=== PATIENT | female | born 1950 | race Caucasian/White ===

== ENCOUNTER → 2018-02-28 14:00 | Inpatient (IN) | payer MEDICARE, OTHER ==
--- NOTE | 2018-02-22 13:52 | HP ---
AMENDED REPORT NOW INCLUDES DESIGNATED COSIGNER HISTORY AND PHYSICAL: DATE OF ADMISSION/SURGERY: 02/26/18 DATE OF OFFICE VISIT: 02/22/18 SURGEON: Mylene Mari MD * (DICTATED BY HÉCTOR DOMÍNGUEZ) PROCEDURE: Right total knee arthroplasty. CHIEF COMPLAINT: Right knee pain. HISTORY OF PRESENT ILLNESS: Ms. Villalobos is a 67-year-old female with end-stage osteoarthritis of the right knee. She has failed conservative treatment and elected to proceed with a right total knee arthroplasty. PAST MEDICAL HISTORY: 1. Hypertension. 2. Sleep apnea. 3. GERD. 4. High cholesterol. 5. Uterine cancer. PAST SURGICAL HISTORY: 1. Hysterectomy. 2. Bilateral carpal tunnel release. 3. Trigger finger release. 4. Appendectomy. CURRENT MEDICATIONS: 1. Vytorin 10/20 mg as directed. 2. Celebrex 20 mg. 3. Calcium and vitamin D. 4. Voltaren gel. 5. Hydrochlorothiazide 12.5 mg. 6. Tramadol as needed. ALLERGIES: To BETADINE and SHELLFISH. FAMILY HISTORY: Family history of coronary artery disease and breast cancer. SOCIAL HISTORY: She is a 67-year-old female. She lives with her son. She does not smoke or use drugs or alcohol. REVIEW OF SYSTEMS: A complete 14-point review of systems was reviewed with the patient, was all negative or noncontributory. She denies history of DVT, PE, hepatitis, HIV, or MRSA. She does report being very violent when she wakes up from anesthesia. PHYSICAL EXAMINATION GENERAL: She is well developed, well nourished, in no acute distress. VITAL SIGNS: She stands 5 feet 3 inches tall, weighs 278 pounds. Her blood pressure is 134/86, her heart rate is 96 . MUSCULOSKELETAL: Right lower extremity: The skin is intact. There are no open wounds or abrasions. She has a moderate joint effusion. She has some tenderness over the medial and lateral joint line. Range of motion is 10 to 120 degrees of flexion. She has 2+ dorsalis pedis pulse. Intact sensation in her lower extremity. Muscle group strengths are intact to 5/5. NEUROLOGIC: She is alert and oriented x3. Pleasant mood and appropriate affect. ASSESSMENT AND PLAN: Ms. Villalobos is a 67-year-old female with end-stage osteoarthritis of the right knee. She has failed conservative treatment and elected to proceed with a right total knee arthroplasty. The surgery is scheduled for 02/26/[address] Mari discussed the risks and benefits of the surgery at today's visit, and all of her questions were answered. She will follow up with Dr. Mari 2 weeks after the surgery. HÉCTOR DOMÍNGUEZ [id number]/[facility] #: [id number] [facility]
--- OUTSIDE RECORDS SUMMARY | 2018-02-26 09:50 | XMS REPORT | Continuity of Care Document ---
:1950 External Reference #:[id number] Author Name Avery William Care Team Providers Name Role Phone Katelynn Vera MD Primary Care Physician Unavailable Payers Type Date Identification Numbers Payment Provider Subscriber Effective: 2017 Policy Number: [id number] Medicare Sarah Billing PayID: [id number] [address] [place] [address] Effective: 2015 Policy Number: [id number] [facility] Ruben Billing Expires: 2017 Group Number: [id number] [address] PayID: [id number] [place] [address] Effective: 2017 Policy Number: [id number] [employer] Sarah Billing Group Number: [id number] [address] PayID: [id number] [place] [address] Expires: 2015 Policy Number: [id number] [employer] Ruben Billing Group Number: [id number] [address] PayID: [id number] [place] [address] Advance Directives Description No Information Available Problems Date Description Provider Status Onset: 10/22/2014 Obstructive sleep apnea syndrome Nadira Taylor MD Active Onset: 10/22/2014 Morbid obesity Nadira Taylor MD Active Onset: 11/17/2016 Localized, primary osteoarthritis Mylene Mari M.D. 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 needed for pain Vytorin Active Tablets 10-20mg As Unknown /0000 directed Celebrex Active Capsules 200mg As Unknown /0000 directed Calcium + D Active As Unknown /0000 directed Voltaren Active Gel 1% Unknown / Hydrochlorothiazide Active Capsules 12.5mg Unknown /0000 Medrol 11/17 Hx TBPK 4mg 1unit medrol M25.561 s dose pack Kamaljit, - - take as M.D. 07/08 directed Percocet 11/17 Hx Tablets 5-325mg 90tab 1-2 tabs M25.561 s by mouth Kamaljit, - q8 as M.D. 02/21 needed pain Simvastatin 10/21 Hx Tablets 20mg 1 by mouth - every day 09/06 Epipen 2-Gustavo 10/21 Hx Solution 0.3mg/0.3 use as Auto-Inje ML directed - ct 11/16 Gabapentin Hx Capsules 300mg Unknown /0000 - 11/16 Medications Administered in Office Medication Date Status Form Strength Qnty SIG Indications Ordering Provider Depomedrol Administered Injection Mylene 40MG 019 Carlos Mari Depomedrol Administered Injection Mylene 40MG 018 Carlos Mari Depomedrol Administered Injection Mylene 40MG 018 Carlos Mari Depomedrol Administered Injection Mylene 40MG 017 Carlos Mari Hyaluron Or Administered Injection Anna Derivative,Or 016 Carlos Bergeron thovisc,For Intra-Articul ar Inj Per Dose Hyaluron Or Administered Injection Anna Derivative,Or 016 Carlos Bergeron thovisc,For Intra-Articul ar Inj Per Dose Hyaluron Or Administered Injection Anna Derivative,Or 016 Carlos Bergeron thovisc,For Intra-Articul ar Inj Per Dose Depomedrol Administered Injection Anna 40MG Adilson Bergeron M.D. Hyaluron Or Administered Injection Anna Derivative,Or Juan Bergeron M.D. thovisc,For Intra-Articul ar Inj Per Dose Hyaluron Or Administered Injection Anna Derivative,Or Juan Bergeron M.D. thovisc,For Intra-Articul ar Inj Per Dose Hyaluron Or Administered Injection Anna Derivative,Or 015 Carlos Bergeron thovisc,For Intra-Articul ar Inj Per Dose Immunizations Description No Information Available Vital Signs Date Vital Result Comment 02/22/2018 9:53am Height 63 inches 5'3" Weight 278.00 lb Heart Rate 96 /min BP Systolic 134 mmHg BP Diastolic 86 mmHg BMI (Body Mass Index) 49.2 kg/m2 11/30/2017 11:20am Height 63 inches 5'3" Weight 270.00 lb dressed Heart Rate 88 /min BP Systolic Sitting 124 mmHg Lue large BP Diastolic Sitting 70 mmHg Lue large Respiratory Rate 16 /min BMI (Body Mass Index) 47.8 kg/m2 07/09/2017 9:51am Height 63 inches 5'3" Weight 269.00 lb Heart Rate 80 /min BP Systolic 140 mmHg BP Diastolic 94 mmHg Body Temperature 97.4 F Pain Level 8 BMI (Body Mass Index) 47.6 kg/m2 11/17/2016 10:43am Height 63 inches 5'3" Weight 269.00 lb BP Systolic 130 mmHg BP Diastolic 84 mmHg Respiratory Rate 20 /min Body Temperature 97.9 F Pain Level 7 BMI (Body Mass Index) 47.6 kg/m2 12/13/2015 8:25am Height 63 inches 5'3" Weight 255.00 lb Heart Rate 110 /min BP Systolic 150 mmHg BP Diastolic 100 mmHg BMI (Body Mass Index) 45.2 kg/m2 12/06/2015 8:08am Height 63 inches 5'3" Weight 260.00 lb Pain Level 0 BMI (Body Mass Index) 46.1 kg/m2 11/24/2015 8:59am Height 63 inches 5'3" Weight 255.00 lb Pain Level 3 BMI (Body Mass Index) 45.2 kg/m2 09/08/2015 2:41pm Height 63 inches 5'3" Weight 255.00 lb Heart Rate 64 /min Respiratory Rate 18 /min Pain Level 3 BMI (Body Mass Index) 45.2 kg/m2 03/30/2015 11:34am Height 63 inches 5'3" Weight 160.00 lb Heart Rate 102 /min BP Systolic Sitting 146 mmHg BP Diastolic Sitting 90 mmHg Respiratory Rate 20 /min O2 % BldC Oximetry 98 % BMI (Body Mass Index) 28.3 kg/m2 02/09/2015 9:29am Height 62.5 inches 5'2.50" Weight 278.00 lb reported Heart Rate 98 /min BP Systolic 140 mmHg BP Diastolic 92 mmHg Respiratory Rate 14 /min O2 % BldC Oximetry 98 % BMI (Body Mass Index) 50.0 kg/m2 10/22/2014 9:22am Height 62.5 inches 5'2.50" Weight 278.00 lb Heart Rate 108 /min BP Systolic 140 mmHg BP Diastolic 90 mmHg Respiratory Rate 14 /min Body Temperature 98.6 F O2 % BldC Oximetry 96 % BMI (Body Mass Index) 50.0 kg/m2 Neck Circumference in inches 18 05/21/2014 9:09am Height 62.5 inches 5'2.50" Body Temperature 97.6 F Pain Level 0 05/14/2014 9:22am Height 62.5 inches 5'2.50" Weight 240.00 lb Heart Rate 94 /min BP Systolic Sitting 134 mmHg BP Diastolic Sitting 97 mmHg Pain Level 0 BMI (Body Mass Index) 43.2 kg/m2 05/07/2014 9:39am Height 63 inches 5'3" Heart Rate 101 /min BP Systolic 140 mmHg BP Diastolic 114 mmHg 03/19/2014 10:34am Height 63 inches 5'3" Weight 260.00 lb Heart Rate 99 /min BP Systolic 157 mmHg BP Diastolic 90 mmHg BMI (Body Mass Index) 46.1 kg/m2 Results Description No Information Available Procedures Date Code Description Status 02/22/201820474 Inject/Drain Joint/Bursa Major W/O US Completed 07/09/2017 Inject/Drain Joint/Bursa Major W/O US Completed 11/17/2016 Inject/Drain Joint/Bursa Major W/O US Completed 12/13/2015 Inject/Drain Joint/Bursa Major W/O US Completed 12/06/2015 Inject/Drain Joint/Bursa Major W/O US Completed 11/24/2015 Inject/Drain Joint/Bursa Major W/O US Completed 09/08/201564140 Inject Tendon Sheath Or Ligament Aponeurosis Eg Plantar Completed Fascia 01/20/2015 92195 Polysomnography Sleep Staging 4+ Parameters W/Cpap Completed 05/21/2014 Inject/Drain Joint/Bursa Major W/O US Completed 05/14/2014 Inject/Drain Joint/Bursa Major W/O US Completed 05/07/2014 Inject/Drain Joint/Bursa Major W/O US Completed 03/19/2014 48825 Rad Exam; Knee Comp Completed 03/19/2014 96006 Rad Exam; Elbow, Limited Completed Encounters Type Date Location Provider Dx Diagnosis Office Visit 11/30/2017 [facility] And Shabnam Gibson, G47.33 Obstructive sleep 10:45a [facility] LONNIE MUKHERJEE, GAS FLOW REGULATOR-BC apnea (adult) [facility] (pediatric) Z68.42 Body mass index (BMI) 45.0-49.9, adult Office Visit 11/17/2016 9:45a [facility] Mylene Mari, M25.561 Pain in right Of [facility]. M.D. knee M17.11 Unilateral primary osteoarthritis, right knee M25.461 Effusion, right knee M54.31 Sciatica, right side M54.5 Low back pain Office Visit 09/08/2015 Orthopedic Anna M17.11 Unilateral primary 2:20p [facility] Carlos Bergeron osteoarthritis, C.M.A. right knee M65.321 Trigger finger, right index finger Office Visit 03/30/2015 Pulmonology And Shabnam G47.33 Obstructive sleep 11:15a [facility] YAZ Gibson, LONNIE, apnea (adult) [facility] GAS FLOW REGULATOR-BC (pediatric) E66.01 Morbid (severe) obesity due to excess calories Office Visit 02/09/2015 Pulmonology And Shabnam G47.33 Obstructive sleep 9:30a [facility] YAZ Gibson, RN, apnea (adult) [facility] GAS FLOW REGULATOR-BC (pediatric) E66.01 Morbid (severe) obesity due to excess calories Office Visit 10/22/2014 9:30a Pulmonology And Nadira 327.23 Obstructive Sleep [facility] MD Claudia Apnea Adult & [facility] Pediatric 278.01 Obesity Morbid Office Visit 03/19/2014 10:15a Orthopedic Anna Bergeron, 813.05 [facility] 715.16 Osteoarthrosis Localized Prim Lower Leg Plan of Treatment Future Appointment(s):03/11/2018 1:15 pm - Mylene Mari M.D. at [facility].02/26/2018 9:30 am - WILBER Barrientos at [facility]02/26/2018 9:30 am - HÉCTOR Cazares at [facility]02/26/2018 9:30 am - Mylene Mari M.D. at [facility]12/03/2018 10:30 am - Shabnam Gibson DNP, RN, GAS FLOW REGULATOR-BC at [facility]02/22/2018 - Mylene Mari M.D.M17.0 Bilateral primary osteoarthritis of kneeFollow up:Follow up: 2 weeks after [id number] Effusion, right kneeM25.561 Pain in right kneeM25.562 Pain in left kneeFollow up:Follow up:M25.462 Effusion, left knee
--- OUTSIDE RECORDS SUMMARY | 2018-02-26 09:51 | XMS REPORT ---
:1950 External Reference #:[id number] Author Organization [facility] Address [address] [place] [address] Phone [phone] Care Team Providers Name Role Phone Katelynn Vera M.D. Care Team Information Mail Superintendent Unavailable Katelynn Vera M.D. Primary Care Physician Unavailable Payers Type Date Identification Numbers Payment Provider Subscriber Medicare Primary Effective: Policy Number: Medicare Dane Smith Billing 2017 [id number] PayID: [id number] [address] [place] [address] Medigap Part B Effective: 2017 Policy Number: Jobteladio Smith Billing [id number] Group Number: [id number] [address] PayID: [id number] [place] [address] Medigap Part B Effective: Policy Number: Medicare Dane Smith Billing 2017 [id number] Expires: 2017 PayID: [id number] [address] [place] [address] Problems Date Description Provider Status Onset: 08/31/2008 Vitamin D deficiency Lindsay Delgado M.D. Active Onset: 06/15/2011 Hyperlipidemia Jessie Ramirez M.D. Active Onset: 06/15/2011 Cobalamin deficiency Jessie Ramirez M.D. Active Onset: 06/15/2011 Morbid obesity Jessie Ramirez M.D. Active Onset: 06/15/2011 Gastroesophageal reflux disease Jessie Ramirez M.D. Active Onset: 09/24/2013 Degenerative joint disease Juan Miguel Cherry M.D. Active involving multiple joints Onset: 10/01/2014 Obstructive sleep apnea syndrome Juan Miguel Cherry M.D. Active Onset: 08/13/2017 Essential hypertension Katelynn Vera M.D. Active Onset: 06/15/2011 Adult health examination Jessie Ramirez M.D. 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 areas after bathing Hydrochlorothiazid 01/20 Active Capsules 12.5mg 30cap 1 by mouth I10 Julio C s every day Carlos Diaz Voltaren 04/15 Active Gel 1% 100gm apply to Dacia painful Brian, area three [employer] TRANSMISSION [employer]IST times a day Celecoxib 10/03 Active Capsules 200mg 180ca take 1 M15.0 Eulalio A ps capsule Darlow, twice M.D. daily Simvastatin 09/24 Active Tablets 20mg 90tab take 1 E78.5 s tablet by Morral, mouth M.D. every day Epipen 2-Gustavo 11/14 Active Solution 0.3mg/0.3 1unit use as Auto-Inje ML s directed juliana Vera M.D. Caltrate 600+D Active Tablets 600-400mg 100ta 1 po bid Unknown Plus /0000 -Unit bs Cpap Active as Unknown /0000 directed Tramadol HCL Active Tablets 50mg 1 by mouth Unknown / every 6 hours as needed Guaifenesin-Codein 07/30 Hx Syrup 100-10mg/ 120ml 5-10ml by R05 Ro 5ML mouth at [facility], - hs prn Afnp-C 08/13 cough 3-4 hrs x 1 Ciprofloxacin HCL 08/03 Hx Solution 0.3% 5ml 2 drop to H10.31 Eulalio A. affected Vimal, - eye(s) two M.D. 08/10 times day x 7 days. Doxycycline 04/15 Hx Tablets 100mg 28tab 1 by mouth [facility] s twice a Brian, - day x 14d [employer]SMISSION [employer]IST 10/14 Cheratussin ac 04/15 Hx Syrup 100-10mg/ 120ml 1-2 5ML teaspoon Brian, - every 4 [employer] TRANSM[employer]ION [employer]IST 10/14 hours needed Mupirocin 03/03 Hx Ointment 2% 1tube apply to L01.00 affected Morral, - area three M.D. 10/14 day x 7days Prednisone 03/03 Hx Tablets 20mg 21tab 3 tabs x 4 M54. s days, 2 Morral, - tab x 3 M.D. 04/15 days, tab x 3 days then stop Gabapentin 03/03 Hx Capsules 300mg 30cap 1 tab by M54.31 s mouth Morral, - every M.D. 10/14 Physical Therapy 03/03 Hx evaluation M54.31 and Morral, - treatment M.D. 10/14 of leg pain/sciat ica Cyclobenzaprine 10/01 Hx Tablets 10mg 30tab 1 by mouth 724.3 Juan Miguel Cherry, s every M.D. - night 03/03 Prednisone 10/01 Hx Tablets 20mg 10tab 1 by mouth 724.3 Juan Miguel Cherry, /2014 s twice a M.D. - day for 5 Amoxicillin/Clavul 04/20 Hx Tablets 875-125mg 20tab 1 by mouth 465.9 Keisha anate Potassium /2014 s twice a Daron, PREFLIGHT MECHANIC - day x 10 Cheratussin ac 04/20 Hx Syrup 100-10mg/ 118ml 2 teaspoon J06.9 5ML every 4 Daron, PREFLIGHT MECHANIC - hours as 03/03 Azithromycin 01/24 Hx Tablets 500mg 5tabs 1 po qd x 786.2 5 Timothy, - Afnp-C 01/29 Benzonatate 01/24 Hx Capsules 200mg 30cap 1 po tid 786.2 s prn for Timothy, - cough Afnp-C 01/30 Guaifenesin ac 01/24 Hx Syrup 100-10mg/ 4oz 1-2 tsp q 786.2 5ML 4 hrs prn Timothy, - for cough Afnp-C 01/31 Aquatherapy 07/09 Hx Please Dagoberto Pena Referral /2012 evaluate Emma, - and treat M.D. 09/24 for b/l knee arthritis and Morbid Obesity Augmentin 04/29 Hx Tablets 875mg 20tab 1 po bid x 461.0 s 10 days Daron PREFLIGHT MECHANIC - 04/29 Amoxicillin/Clavul 04/29 Hx Tablets 875mg 20tab 1 po bid x 461.0 Keisha anate Potassium /2012 s 10 days Daron PREFLIGHT MECHANIC - 05/09 Zithromax 02/20 Hx Tablets 250mg 1tabs 2 po qd 465.9 Ni today , Letty, - then 1 po [employer]SM[employer]IST 03/02 qd times Tussionex 02/20 Hx Liquid ER 10Oz 5 ml po 786.2 bid prn Letty, - cough [employer]SMISSION SPECIALIST 04/29 Ergocalciferol 06/25 Hx Capsules [id number] 8caps 1 capsule Jessie Hammond /2011 po every James, - week for 8 M.D. Aquatherapy 06/14 Hx Please Jessie Hammond Referral /2011 evaluate James, - and treat M.D. 04/29 for b/l /2013 knee arthritis and Morbid Obesity Diflucan 05/12 Hx Tablets 150mg 1tabs 1 po qd von - James, 06/14 M.D. Augmentin 04/21 Hx Tablets 875-125mg 28tab 1 po bid 461.9 s with food Brian, - x 14d [employer]SM[employer]IST 05/12 BD 01/04 Hx 3ml 12uni use ts monthly von - for b James, 03/31 injections M.D. Cyanocobalamin 01/04 Hx Soln 1000mcg/M 30ml inject 1 Jessie Hammond L cc Feliciano Ramirez M.D. 09/24 usly once A month Zithromax 06/12 Hx Tablets 250mg 1tabs 2 po qd 465.9 Lindsay M. Danny mendez, - then 1 po M.D. 06/21 qd times Celebrex 05/06 Hx Caps 200mg 180ca take 1 5.09 Juan Miguel Cherry, ps capsule by Carlos - mouth 10/03 twice a day Nexium 05/06 Hx Capsules 40mg 30cap take 1 Jessie Hammond s capsule by James, - mouth once M.D. 04/29 Amoxil 03/03 Hx Capsules 500mg 30cap 1 po tid 465.9 Ro s Jose, - Afnp-C 03/13 Zithromax 09/15 Hx Tablets 250mg 6Tabs 2 po qd 916.5 Dacia today , Brian, - then 1 po [employer]SMISSION [employer]IST 09/19 qd times Triamcinolone 09/15 Hx Cream 0.5% 30gm apply thin 916.5 Dacia Acetonide film tid Brian, - to AUT[employer] TRANSMISSION SPECIALIST 03/31 areas Note 02/28 Hx PT May Participat von - e In Low James, 09/15 Impact M.D. Physical Activities Cyanocobalamin 04/05 Hx 1000mcg/M 1Vial 1 cc SQ Q L Month les Ramirez, 03/31 M.D. Syringes 04/05 Hx 1Box 3cc 25 Jessie D. gauge 1 James, - inch M.D. 04/02 use monthly for b12 injections Vytorin 04/05 Hx Tablets 10-20mg 90tab Take 1 [place] A. s Tablet By Emma, - Mouth Once M.D. 09/24 A Day /2013 Nystatin 12/22 Hx Cream [id number] 90gra apply bid [place] . t/GM m to Carter, - affected M.D. 10/14 after bathing Aqua Therapy 12/22 Hx Treatment Ni /2006 And les Ramirez, 09/15 For Knee M.D. Pain And Arthritis Medrol Dose Gustavo 05/02 Hx Tablets 4mg 1Pack Use as Directed Feliciano Otto [employer]O TRANSMISSION SPECIALIST-C 06/02 Tobramycin 05/02 Hx 5cc 2 GTT In Fanny R Ophthalmic The Geremias Otto - Jerod AUTO TRANSMISSION SPECIALIST-C 06/02 Eye tid For 5-7 Days Doxycycline 05/02 Hx Capsules 100mg 20cap 1 PO bid Fanny R s Ten Days Feliciano Otto AUTO TRANSMISSION SPECIALIST-C 06/02 Keflex 03/30 Hx Capsules 500mg 20cap 1 po bid X s 10 Days Feliciano Aguirre Afnp-C 04/09 Z-Max 03/17 Hx 2gm 1unit Single s Dose X 1 Feliciano Aguirre Afnp-C 03/19 Zithromax Z-Gustavo 12/24 Hx Tablets 250mg 1Pack as Fanny R Directed Feliciano Otto [employer]O TRANSMISSION SPECIALIST-C 03/17 Augmentin 11/07 Hx Tablets 875mg 20tab 1 po bid Eulalio A. s with food Feliciano Celis M.D. 12/20 Pen VK 08/09 Hx Tablets 500mg 40tab 1 PO qid Eulalio A. /2004 s Feliciano Celis M.D. 08/19 Avelox 02/07 Hx 400mg 10uni 1 qd Eulalio A. ts Feliciano Celis M.D. 02/17 Tussi-12 02/07 Hx Liquid 100cc 1 TSP Q12H Eulalio A. prn Cough Feliciano Celis M.D. 02/17 Zithromax 12/09 Hx 250mg 6unit 2 tabs day 461.0 Rudy F. s 1 Feliciano Lora M.D. 02/28 tab qd days 2 thru 5 Robitussin ac 12/09 Hx 4Oz 1-2 TSP PO Q4H prn Timothy, - Cough Afnp-C 12/16 Flexeril 08/25 Hx 10mg 30uni 1tidprn ts Brian, - AUT[employer] TRANSMISSION SPECIALIST 12/09 Vicodin 08/25 Hx 5/500 20uni 1po q4h ts prn Brian, - AUTO TRANSMISSION SPECIALIST 12/09 Amoxicillin 03/02 Hx Tablets 500mg 21tab 1 Tablet 3 s Times [facility], - Daily Afnp-C 03/09 Nystatin Cream 03/02 Hx Cream 30gm Apply bid To [facility], - Affected Afnp-C 03/09 Amoxicillin 02/22 Hx 250mg 30uni 1 PO tid Rosalio Olivares Feliciano Stringer M.D. 03/02 Multivitamins Hx Tablets 100ta 1 po qd Unknown /0000 bs - 08/03 Medications Administered in Office Medication Date Status Form Strength Qnty SIG Indications Ordering Provider B-12 Injection 10/27/ Administered Injection Ni 2010 les Ramirez M.D. Injection 10/27/ Administered Injection Ni Subcutaneous Or 2010 Mike Perez M.D.-12 Injection 09/09/ Administered Injection Ni 2010 les Ramirez M.D. Injection 09/09/ Administered Injection Ni Subcutaneous Or 2010 Mike Perez M.D. B-12 Injection 05/07/ Administered Injection Ni 2006 les Ramirez M.D. Injection 05/07/ Administered Injection Ni Subcutaneous Or 2006 Mike Perez M.D.-12 Injection 04/05/ Administered Injection Ni 2006 les Ramirez M.D. Injection 04/05/ Administered Injection Ni Subcutaneous Or 2006 les Ramirez, Intramuscular M.D. B-12 Injection 03/08/ Administered Injection Ni 2006 les Ramirez M.D. Injection 03/08/ Administered Injection Ni Subcutaneous Or 2006 les Ramirez, Intramuscular M.D. B-12 Injection 01/19/ Administered Injection Ni 2005 les Ramirez M.D. Injection 01/19/ Administered Injection Ni Subcutaneous Or 2005 les Ramirez, Intramuscular M.D. B-12 Injection 12/22/ Administered Injection Ni 2005 les Ramirez M.D. Injection 12/22/ Administered Injection Ni Subcutaneous Or 2005 les Ramirez, Intramuscular M.D. B-12 Injection 11/14/ Administered Injection Ni 2005 les Ramirez M.D. Injection 11/14/ Administered Injection Ni Subcutaneous Or 2005 les Ramirez, Intramuscular M.D. B-12 Injection 10/20/ Administered Injection Ni 2005 Maryjo Perez.D. Injection 10/20/ Administered Injection Ni Subcutaneous Or 2005 les Ramirez, Intramuscular M.D. B-12 Injection 09/19/ Administered Injection Ni 2005 les Ramirez M.D. Injection 09/19/ Administered Injection Ni Subcutaneous Or 2005 les Ramirez, Intramuscular M.D. B-12 Injection 08/24/ Administered Injection Ni 2005 les Ramirez M.D. Injection 08/24/ Administered Injection Ni Subcutaneous Or 2005 les Ramirez Intramuscular M.D. B-12 Injection 07/18/ Administered Injection Ni 2005 les Ramirez M.D. Injection 07/18/ Administered Injection Ni Subcutaneous Or 2005 les Ramirez Intramuscular M.D. B-12 Injection 06/02/ Administered Injection Ni 2005 les Ramirez M.D. Injection 06/02/ Administered Injection Ni Subcutaneous Or 2005 les Ramirez, Intramuscular M.D. B-12 Injection 05/02/ Administered Injection Fanny R 2005 Fam, AUTO TRANSMISSION SPECIALIST-C Injection 05/02/ Administered Injection Fanny R Subcutaneous Or 2005 Fam, Intramuscular AUTO TRANSMISSION SPECIALIST-C B-12 Injection 03/30/ Administered Injection Alana 2005 Timothy, Afnp-C Injection 03/30/ Administered Injection Alana Subcutaneous Or 2005 Timothy, Intramuscular Afnp-C B-12 Injection 03/02/ Administered Injection Ni 2006 els Ramirez M.D. Injection 03/02/ Administered Injection Ni Subcutaneous Or 2005 Mike Perez.DBrinda B-12 Injection 12/20/ Administered Injection Ni 2004 les Ramirez M.D. B-12 Injection 12/20/ Administered Injection Eulalio A. 2004 Carlos Celis Injection 12/20/ Administered Injection Ni Subcutaneous Or 2004 Mike Perez M.DBrinda B-12 Injection 11/14/ Administered Injection Ni 2004 les Ramirez M.D. Injection 11/14/ Administered Injection Ni Subcutaneous Or 2004 Mike Perez M.D. Immunizations CPT Code Status Date Vaccine Lot # [id number] Given 10/15/2017 High-Dose, Influenza Virus Vacccine-fluzone 65 and older 52429 Given 08/13/2017 Pneumococcal Conjugate Vacc-13 [id number] 05348 Given 01/23/2014 DO Not Use Split Influenza Virus Vaccine [id number] 14321 Given 07/09/2012 Zostivax [id number] 52468 Given 08/12/2008 Tdap Tetanus, W Pertussis [id number] 81933 Given 12/17/2007 DO Not Use Split Influenza Virus Vaccine [id number] 96152 Given 12/25/2006 DO Not Use Split Influenza Virus Vaccine 93063 Given 12/22/2005 DO Not Use Split Influenza Virus Vaccine [id number] 17803 Given 03/02/2005 DO Not Use Split Influenza Virus Vaccine [id number] Vital Signs Date Vital Result Comment 01/31/2018 BP Systolic 128 mmHg BP Diastolic 86 mmHg Heart Rate 80 /min Body Temperature 97.9 F Respiratory Rate 16 /min Weight 271.00 lb 10/01/2017 BP Systolic 120 mmHg BP Diastolic 78 mmHg Heart Rate 82 /min Body Temperature 97.8 F Respiratory Rate 18 /min Weight 264.00 lb 08/13/2017 BP Systolic 132 mmHg BP Diastolic 92 mmHg Heart Rate 88 /min Body Temperature 97.9 F Height 61 inches 5'1" Weight 264.00 lb BMI (Body Mass Index) 49.9 kg/m2 07/30/2017 BP Systolic 120 mmHg BP Diastolic 78 mmHg Heart Rate 96 /min Body Temperature 98.3 F Respiratory Rate 18 /min Height 60.25 inches 5'0.25" Weight 260.00 lb BMI (Body Mass Index) 50.4 kg/m2 08/03/2016 BP Systolic 122 mmHg BP Diastolic 80 mmHg Heart Rate 104 /min Body Temperature 98.1 F Respiratory Rate 18 /min Height 60.25 inches 5'0.25" Weight 273.38 lb BMI (Body Mass Index) 52.9 kg/m2 Right Visual Acuity Distance 20/50 w/kit Left Visual Acuity Distance 20/25 w/kit 01/21/2016 BP Systolic 150 mmHg BP Diastolic 90 mmHg Heart Rate 80 /min Body Temperature 97.9 F Height 60.25 inches 5'0.25" Weight 273.00 lb BMI (Body Mass Index) 52.9 kg/m2 10/15/2015 BP Systolic 144 mmHg BP Diastolic 88 mmHg Heart Rate 100 /min Body Temperature 97.1 F Height 60.25 inches 5'0.25" Weight 269.00 lb BMI (Body Mass Index) 52.1 kg/m2 04/15/2015 BP Systolic 136 mmHg BP Diastolic 80 mmHg Heart Rate 76 /min Body Temperature 98.5 F Respiratory Rate 20 /min Height 60.25 inches 5'0.25" Weight 270.00 lb BMI (Body Mass Index) 52.3 kg/m2 03/03/2015 BP Systolic 156 mmHg BP Diastolic 88 mmHg Heart Rate 90 /min Body Temperature 98.1 F Respiratory Rate 16 /min Height 60.25 inches 5'0.25" Weight 270.50 lb BMI (Body Mass Index) 52.4 kg/m2 10/01/2014 BP Systolic 140 mmHg BP Diastolic 102 mmHg Heart Rate 68 /min Body Temperature 98.2 F Respiratory Rate 18 /min Height 60.25 inches 5'0.25" Weight 275.00 lb BMI (Body Mass Index) 53.3 kg/m2 04/20/2014 BP Systolic 146 mmHg BP Diastolic 90 mmHg Heart Rate 110 /min Body Temperature 98.5 F Respiratory Rate 20 /min O2 % BldC Oximetry 98 % Height 60.25 inches 5'0.25" Weight 272.00 lb BMI (Body Mass Index) 52.7 kg/m2 04/02/2014 BP Systolic 136 mmHg BP Diastolic 90 mmHg Heart Rate 80 /min Body Temperature 97.6 F Height 60.25 inches 5'0.25" Weight 269.00 lb BMI (Body Mass Index) 52.1 kg/m2 09/24/2013 BP Systolic 124 mmHg BP Diastolic 80 mmHg Heart Rate 82 /min Body Temperature 98.2 F Respiratory Rate 20 /min Height 60.25 inches 5'0.25" Weight 272.00 lb BMI (Body Mass Index) 52.7 kg/m2 01/24/2013 BP Systolic 132 mmHg BP Diastolic 86 mmHg Heart Rate 104 /min Body Temperature 98.4 F Respiratory Rate 18 /min O2 % BldC Oximetry 98 % Height 61.5 inches 5'1.50" Weight 269.00 lb BMI (Body Mass Index) 50.0 kg/m2 07/09/2012 BP Systolic 150 mmHg BP Diastolic 100 mmHg Heart Rate 76 /min Body Temperature 97.8 F Respiratory Rate 18 /min Height 61.5 inches 5'1.50" Weight 265.00 lb BMI (Body Mass Index) 49.3 kg/m2 04/29/2012 BP Systolic 122 mmHg BP Diastolic 80 mmHg Heart Rate 90 /min Body Temperature 98.4 F Respiratory Rate 20 /min Height 61.5 inches 5'1.50" Weight 263.38 lb BMI (Body Mass Index) 49.0 kg/m2 02/21/2012 BP Systolic 120 mmHg BP Diastolic 80 mmHg Heart Rate 84 /min Body Temperature 98.2 F Height 61.5 inches 5'1.50" Weight 274.00 lb BMI (Body Mass Index) 50.9 kg/m2 06/15/2011 BP Systolic 122 mmHg BP Diastolic 88 mmHg Heart Rate 104 /min Height 61.5 inches 5'1.50" Weight 274.00 lb BMI (Body Mass Index) 50.9 kg/m2 05/12/2010 BP Systolic 128 mmHg BP Diastolic 80 mmHg Heart Rate 80 /min Body Temperature 98.3 F Height 61.5 inches 5'1.50" Weight 269.00 lb BMI (Body Mass Index) 50.0 kg/m2 04/21/2010 BP Systolic 110 mmHg BP Diastolic 70 mmHg Heart Rate 80 /min Body Temperature 98.6 F Height 61.5 inches 5'1.50" Weight 269.00 lb BMI (Body Mass Index) 50.0 kg/m2 03/31/2010 BP Systolic 120 mmHg BP Diastolic 82 mmHg Heart Rate 100 /min Height 61.5 inches 5'1.50" Weight 275.00 lb BMI (Body Mass Index) 51.1 kg/m2 08/12/2008 BP Systolic 126 mmHg BP Diastolic 88 mmHg Heart Rate 76 /min Respiratory Rate 18 /min Height 61.5 inches 5'1.50" Weight 259.00 lb BMI (Body Mass Index) 48.1 kg/m2 06/12/2008 BP Systolic 124 mmHg BP Diastolic 88 mmHg Heart Rate 80 /min Body Temperature 98.7 F Height 61.5 inches 5'1.50" Weight 253.00 lb BMI (Body Mass Index) 47.0 kg/m2 03/03/2008 BP Systolic 130 mmHg BP Diastolic 90 mmHg Heart Rate 96 /min Body Temperature 98.5 F Height 61.5 inches 5'1.50" Weight 262.00 lb BMI (Body Mass Index) 48.7 kg/m2 09/20/2007 BP Systolic 142 mmHg BP Diastolic 84 mmHg Body Temperature 76.0 F Height 61.5 inches 5'1.50" Weight 262.00 lb BMI (Body Mass Index) 48.7 kg/m2 09/16/2007 BP Systolic 120 mmHg BP Diastolic 80 mmHg Heart Rate 80 /min Body Temperature 98.3 F Height 61.5 inches 5'1.50" Weight 262.00 lb BMI (Body Mass Index) 48.7 kg/m2 02/28/2007 BP Systolic 118 mmHg BP Diastolic 82 mmHg Heart Rate 88 /min Body Temperature 97.6 F Height 61.5 inches 5'1.50" Weight 262.00 lb BMI (Body Mass Index) 48.7 kg/m2 10/08/2006 BP Systolic 114 mmHg BP Diastolic 80 mmHg Body Temperature 98.3 F Respiratory Rate 16 /min Height 61.5 inches 5'1.50" 06/28/2006 BP Systolic 122 mmHg BP Diastolic 80 mmHg Heart Rate 76 /min Height 61.5 inches 5'1.50" Weight 260.00 lb BMI (Body Mass Index) 48.3 kg/m2 05/28/2006 BP Systolic 124 mmHg BP Diastolic 70 mmHg Heart Rate 72 /min Body Temperature 97.4 F Height 61.5 inches 5'1.50" Weight 259.00 lb BMI (Body Mass Index) 48.1 kg/m2 04/05/2006 BP Systolic 122 mmHg BP Diastolic 80 mmHg Heart Rate 86 /min Body Temperature 98.0 F Respiratory Rate 13 /min Height 61.5 inches 5'1.50" 12/22/2005 BP Systolic 120 mmHg BP Diastolic 80 mmHg Heart Rate 88 /min Height 61.5 inches 5'1.50" Weight 252.00 lb BMI (Body Mass Index) 46.8 kg/m2 05/09/2005 BP Systolic 124 mmHg BP Diastolic 80 mmHg Heart Rate 74 /min Respiratory Rate 13 /min Height 62.25 inches 5'2.25" 05/02/2005 BP Systolic 124 mmHg BP Diastolic 80 mmHg Heart Rate 78 /min Respiratory Rate 15 /min Height 62.25 inches 5'2.25" 03/30/2005 BP Systolic 128 mmHg BP Diastolic 74 mmHg Heart Rate 72 /min Body Temperature 98.4 F Height 62.25 inches 5'2.25" Weight 250.00 lb BMI (Body Mass Index) 45.4 kg/m2 03/17/2005 BP Systolic 120 mmHg BP Diastolic 78 mmHg Heart Rate 80 /min Body Temperature 100.0 F Height 62.25 inches 5'2.25" 12/24/2004 BP Systolic 124 mmHg BP Diastolic 74 mmHg Heart Rate 78 /min Body Temperature 98.4 F Height 62.25 inches 5'2.25" Weight 246.00 lb BMI (Body Mass Index) 44.6 kg/m2 11/14/2004 BP Systolic 134 mmHg BP Diastolic 76 mmHg Heart Rate 76 /min Body Temperature 98.0 F Height 62.25 inches 5'2.25" Weight 233.00 lb BMI (Body Mass Index) 42.3 kg/m2 11/07/2004 BP Systolic 108 mmHg BP Diastolic 70 mmHg Heart Rate 76 /min Body Temperature 98.3 F Height 62.25 inches 5'2.25" Weight 243.00 lb BMI (Body Mass Index) 44.1 kg/m2 08/09/2004 BP Systolic 124 mmHg BP Diastolic 80 mmHg Heart Rate 68 /min Body Temperature 98.3 F Respiratory Rate 16 /min Height 62.25 inches 5'2.25" Weight 243.00 lb BMI (Body Mass Index) 44.1 kg/m2 08/05/2004 BP Systolic 132 mmHg BP Diastolic 80 mmHg Heart Rate 78 /min Height 62.25 inches 5'2.25" Weight 243.00 lb BMI (Body Mass Index) 44.1 kg/m2 05/17/2004 BP Systolic 128 mmHg BP Diastolic 88 mmHg Heart Rate 92 /min Weight 244.00 lb 04/05/2004 BP Systolic 128 mmHg LG Cuff BP Diastolic 80 mmHg LG Cuff Heart Rate 84 /min Weight 250.00 lb 02/08/2004 BP Systolic 131 mmHg BP Diastolic 82 mmHg Heart Rate 72 /min Body Temperature 97.2 F Respiratory Rate 18 /min O2 % BldC Oximetry 96 % 12/10/2003 BP Systolic 130 mmHg BP Diastolic 80 mmHg Heart Rate 88 /min Body Temperature 98.0 F Weight 247.00 lb 08/25/2002 BP Systolic 136 mmHg BP Diastolic 74 mmHg Heart Rate 68 /min Weight 241.00 lb 03/02/1998 Body Temperature 96.5 F 02/22/1998 Body Temperature 97.6 F Weight 237.00 lb Results Test Date Test Result H/L Range Note Laboratory test 11/12/2017 Misc Lab Test See Attached finding Laboratory test 10/17/2017 Surgical Pathology SEE RESULT BELOW 1 finding Laboratory test 08/13/2017 Cytology Thinprep SEE RESULT BELOW 2 finding w/rfx(cmc) Lipid Profile 07/24/2017 Cholesterol 172 mg/dL 120-200 Triglycerides 129 mg/dL 30-200 HDL Cholesterol 71 mg/dL 30-85 LDL (Calculated) 75 CALC 0-129 VLDL Cholesterol 26 mg/dL 0-50 HDL Risk Factor 2.4 CALC 0.0-4.4 Laboratory test finding 07/24/2017 TSH 0.98 mIU/L 0.50-6.00 CBC Electronic Fma 07/24/2017 WBC 12.5 x10^3/UL High 4.0-10.0 3 RBC 5.15 x10^6/UL 3.93-6.00 HGB 15.1 g/dL 12.0-17.0 HCT 44 % 35-50 MCV 85.8 fL 80.0-95.0 MCH 29.3 pg 25.6-32.2 MCHC 34.2 g/dL 32.2-36.0 RDW-CV 14.0 % 11.6-14.4 PLT 240 x10^3/UL 163-400 MPV 10.6 fL 9.4-12.4 Azalia# 9.60 x10^3/UL High 1.56-6.13 Lymph# 2.06 x10^3/UL 1.18-3.74 Camas# 0.66 x10^3/UL 0.24-0.82 Eos # 0.1 x10^3/UL 0.0-0.5 Baso # 0.05 x10^3/UL 0.01-0.08 Azalia% 76.7 % High 34.0-70.0 Lymph % 16.5 % Low 20.0-52.0 Camas% 5.3 % 5.0-12.0 Eos% 0.9 % 0.7-7.0 Baso% 0.4 % 0.1-1.2 Comprehensive Metabolic Prof 07/24/2017 Sodium 140 mEq/L 134-149 Potassium 4.2 mEq/L 3.6-5.5 Chloride 103 mEq/L 94-112 Carbon Dioxide 27 mEq/L 21-32 Glucose 101 mg/dL 70-105 BUN 23 mg/dL 6-26 Creatinine 0.7 mg/dL 0.6-1.4 BUN/Creat Ratio 32.9 CALC 8.0-36.0 Calcium 9.4 mg/dL 8.6-10.2 Total Protein 6.8 g/dL 6.4-8.3 Albumin 4.2 g/dL 3.8-5.5 Globulin 2.6 g/dL 2.0-4.8 A/G Ratio 1.6 CALC 0.6-2.3 Alk. Phosphatase 64 U/L 30-110 Alt (SGPT) 19 U/L 7-35 Ast (Sgot) 13 U/L 5-34 Total Bilirubin 0.6 mg/dL 0.2-1.3 GFR Non- >60 ml/min/1.73m^ >=60 GFR >60 ml/min/1.73m^ >=60 Age [birth year]10/15/2014 Age 30-65 4 Diagn See Comment: 4, 5 Adeq See Comment: 4, 6 [email or web address] See Comment: 4, 7 Perfor See Comment: 4, 8 Comm . 4 Note See Comment: 4, 9 HPV Aptima Negative Negative 4, 10 Laboratory test finding 10/15/2015 PDF [id number] SEE IMAGE 4 Comprehensive Metabolic Prof 09/03/2015 Sodium 143 mEq/L 134-149 Potassium 5.0 mEq/L 3.6-5.5 Chloride 106 mEq/L 94-112 Carbon Dioxide 26 mEq/L 21-32 Glucose 105 mg/dL 70-105 BUN 25 mg/dL 6-26 Creatinine 0.9 mg/dL 0.6-1.4 BUN/Creat Ratio 27.8 CALC 8.0-36.0 Calcium 10.0 mg/dL 8.6-10.2 Total Protein 7.2 g/dL 6.4-8.3 Albumin 4.5 g/dL 3.8-5.5 Globulin 2.7 g/dL 2.0-4.8 A/G Ratio 1.7 CALC 0.6-2.3 Alk. Phosphatase 69 U/L 30-110 Alt (SGPT) 19 U/L 7-35 Ast (Sgot) 15 U/L 5-34 Total Bilirubin 0.3 mg/dL 0.2-1.3 GFR Non- >60 ml/min/1.73m^ >=60 GFR >60 ml/min/1.73m^ >=60 Lipid Profile 09/03/2015 Cholesterol 226 mg/dL High 120-200 Triglycerides 115 mg/dL 30-200 HDL Cholesterol 66 mg/dL 30-85 LDL (Calculated) 137 CALC High 0-129 VLDL Cholesterol 23 mg/dL 0-50 HDL Risk Factor 3.4 CALC 0.0-4.4 Laboratory test finding 09/03/2015 Free T4 0.80 ng/dL 0.75-1.54 TSH 1.69 mIU/L 0.50-6.00 Complete Blood Count 09/03/2015 WBC 5.4 x10^3/UL 3.6-9.6 RBC 4.96 x10^6/UL 3.90-5.70 HGB 14.3 g/dL 12.1-17.2 HCT 43 % 36-50 MCV 87.0 fL 82.2-97.4 MCH 28.9 pg 27.6-33.3 MCHC 33.2 g/dL 33.0-35.5 RDW 13.8 % High 11.6-13.7 PLT 316 x10^3/UL 150-400 MPV 7.7 fL 7.4-10.4 Gran # 2.9 x10^3/UL 1.5-7.2 Lymph# 2.2 x10^3/UL 0.7-4.9 Camas# 0.3 x10^3/UL 0.1-0.9 Gran % 51.1 % 42.2-75.2 Lymph % 42.3 % 20.5-51.1 Camas% 6.6 % 1.7-9.3 Lipid Profile 10/01/2014 Cholesterol 225 mg/dL High 120-200 Triglycerides 144 mg/dL 30-200 HDL Cholesterol 68 mg/dL 30-85 LDL (Calculated) 128 CALC 0-129 VLDL Cholesterol 29 mg/dL 0-50 HDL Risk Factor 3.3 CALC 0.0-4.4 Comprehensive Metabolic Prof 10/01/2014 Sodium 144 mEq/L 134-149 Potassium 4.7 mEq/L 3.6-5.5 Chloride 109 mEq/L 94-112 Carbon Dioxide 25 mEq/L 21-32 Glucose 116 mg/dL High 70-105 11 BUN 19 mg/dL 6-26 Creatinine 0.9 mg/dL 0.6-1.4 BUN/Creat Ratio 21.1 CALC 8.0-36.0 Calcium 9.7 mg/dL 8.6-10.2 Total Protein 7.2 g/dL 6.4-8.3 Albumin 4.2 g/dL 3.8-5.5 Globulin 3.0 g/dL 2.0-4.8 A/G Ratio 1.4 CALC 0.6-2.3 Alk. Phosphatase 64 U/L 30-110 Alt (SGPT) 21 U/L 7-35 Ast (Sgot) 16 U/L 5-34 Total Bilirubin 0.4 mg/dL 0.2-1.3 GFR Non- >60 ml/min/1.73m^ >=60 GFR >60 ml/min/1.73m^ >=60 Comprehensive Metabolic Prof 04/02/2014 Sodium 141 mEq/L 134-149 Potassium 4.5 mEq/L 3.6-5.5 Chloride 106 mEq/L 94-112 Carbon Dioxide 29 mEq/L 21-32 Glucose 109 mg/dL High 70-105 12 BUN 22 mg/dL 6-26 Creatinine 0.8 mg/dL 0.6-1.4 BUN/Creat Ratio 27.5 CALC 8.0-36.0 Calcium 9.5 mg/dL 8.6-10.2 Total Protein 6.4 g/dL 6.4-8.3 Albumin 4.1 g/dL 3.8-5.5 Globulin 2.3 g/dL 2.0-4.8 A/G Ratio 1.8 CALC 0.6-2.3 Alk. Phosphatase 64 U/L 30-110 Alt (SGPT) 20 U/L 7-35 Ast (Sgot) 13 U/L 5-34 Total Bilirubin 0.4 mg/dL 0.2-1.3 Lipid Profile 04/02/2014 Cholesterol 192 mg/dL 120-200 Triglycerides 107 mg/dL 30-200 HDL Cholesterol 65 mg/dL 30-85 LDL (Calculated) 106 CALC 0-129 VLDL Cholesterol 21 mg/dL 0-50 HDL Risk Factor 3.0 CALC 0.0-4.4 Laboratory test finding 04/02/2014 Vitamin B-12 371 pg/mL 230-1050 13 Ua - Non Micro (Fma) 09/24/2013 Appearance clear Color yellow Glucose negative Bilirubin negative Ketones negative SP Grav 1.025 Blood negative PH 6.0 Protein negative Urobil 0.2 Nitrite negative Leukocytes (Fma/CMC/[facility]) negative Comprehensive Metabolic Prof 09/16/2013 Sodium 136 mEq/L 134-149 Potassium 4.6 mEq/L 3.6-5.5 Chloride 102 mEq/L 94-112 Carbon Dioxide 24 mEq/L 21-32 Glucose 95 mg/dL 70-105 BUN 17 mg/dL 6-26 Creatinine 0.9 mg/dL 0.6-1.4 BUN/Creat Ratio 18.9 CALC 8.0-36.0 Calcium 9.2 mg/dL 8.6-10.2 Total Protein 7.2 g/dL 6.3-8.1 Albumin 4.4 g/dL 3.8-5.5 Globulin 2.8 g/dL 2.0-4.8 A/G Ratio 1.6 CALC 0.6-2.3 Alk. Phosphatase 58 U/L 30-110 Alt (SGPT) 29 U/L 7-35 Ast (Sgot) 14 U/L 5-34 Total Bilirubin 0.5 mg/dL 0.2-1.3 Lipid Profile 09/16/2013 Cholesterol 219 mg/dL High 120-200 Triglycerides 124 mg/dL 30-200 HDL Cholesterol 72 mg/dL 30-85 LDL (Calculated) 122 CALC 0-129 VLDL Cholesterol 25 mg/dL 0-50 HDL Risk Factor 3.0 CALC 0.0-4.4 Complete Blood Count 09/16/2013 WBC 6.1 x10^3/UL 3.6-9.6 RBC 4.91 x10^6/UL 3.90-5.70 HGB 14.5 g/dL 12.1-17.2 HCT 44 % 36-50 MCV 89.0 fL 82.2-97.4 MCH 29.5 pg 27.6-33.3 MCHC 33.1 g/dL 33.0-35.5 RDW 12.5 % 11.6-13.7 PLT 205 x10^3/UL 150-400 MPV 7.9 fL 7.4-10.4 Gran # 3.3 x10^3/UL 1.5-7.2 Lymph# 2.5 x10^3/UL 0.7-4.9 Camas# 0.3 x10^3/UL 0.1-0.9 Gran % 53.0 % 42.2-75.2 Lymph % 41.7 % 20.5-51.1 Camas% 5.3 % 1.7-9.3 Laboratory test finding 09/16/2013 Vitamin B-12 327 pg/mL 230-1050 14 Laboratory test finding 01/31/2013 Vitamin B12 589 pg/mL 180-914 15 CBC Electronic ([facility]) 07/09/2012 WBC 6.1 3.6-9.6 RBC 5.12 3.90-5.70 Hemoglobin (Fma/CMC/CTX) 14.5 g/dL 12.1 - 17.2 Hematocrit (Fma/CMC/CTX) 44.8 % 36.1 - 50.3 Platelets 245 10^3/ul 150-400 Lymph% 43.4 20.5-51.1 Mixed% 5.3 Neutrophils % 51.3 Mean Corpuscular Vol 87 82.2-97.4 Mean Corpuscular Hemoglobin 28.3 27.6-33.3 Mean Corpuscular Hemo Concen 32.3 32.0-36.0 RDW 12.5 11.6-13.7 Mean Platelet Volume 7.6 6.5-11.0 Ua - Micro ([facility]) 07/09/2012 Appearance slightly cloudy Color yellow Glucose neg Bilirubin neg Ketones neg SP Grav >=1.030 Blood small PH 5.5 Protein neg Urobil 0.2 Nitrite neg Leukocytes (Fma/CMC/[facility]) large Hyaline - /Lpf Granular - /Lpf WBC (Fma,[facility]) 30-40 RBC 2-3 Mucus - /Lpf Epith occ /Lpf Bacteria +2 /Hpf Amorphous - /Lpf Crystals, Fluid (Fma/CMC/CTX) - Z#Comments - Comprehensive Metabolic Prof 07/09/2012 Albumin 4.5 g/dL 3.8-5.5 Alk. Phos. 65 U/L 30-110 Alt (SGPT) 24 U/L 7-35 Ast (Sgot) 18 U/L 5-34 BUN 22 mg/dL 6-26 Calcium 9.4 mg/dL 8.6-10.2 Chloride 101 mEq/L 94-112 Creatinine 1.0 mg/dL 0.6-1.4 Carbon Dioxide 25 mEq/L 21-32 Glucose 107 mg/dL High 70-105 16 Sodium 141 mEq/L 134-149 Total Bilirubin 0.4 mg/dL 0.2-1.3 Total Protein 6.9 g/dL 6.3-8.1 Potassium 4.5 mEq/L 3.6-5.5 Globulin 2.4 g/dL 2.0-4.8 A/G Ratio 1.8 Calc 0.6-2.3 BUN/Creat Ratio 22.3 Calc 8.0-36.0 Lipid Profile 07/09/2012 Cholesterol 175 mg/dL 120-200 HDL 61 mg/dL 30-85 Triglycerides 103 mg/dL 30-200 HDL Risk Factor 2.9 CALC 0.0-4.4 LDL (Calculated) 93 CALC 0-129 VLDL (Calculated) 21 mg/dL 0-50 Laboratory test finding 06/20/2011 Urine Culture No growth. Ua - Micro ([facility]) 06/20/2011 Appearance cloudy Color yellow Glucose neg Bilirubin neg Ketones trace SP Grav >1.030 Blood trace-intact PH 5.0 Protein neg Urobil 0.2 Nitrite neg Leukocytes (Fma/CMC/[facility]) neg Hyaline - /Lpf Granular - /Lpf WBC (a,[facility]) 5-7 RBC 1-3 Mucus - /Lpf Epith few /Lpf Bacteria 1+ /Hpf Amorphous small amt /Lpf Crystals, Fluid (Fma/CMC/CTX) - Z#Comments - CBC Electronic ([facility]) 06/15/2011 WBC 5.6 3.6-9.6 RBC 4.03 3.90-5.70 Hemoglobin (Fma/CMC/CTX) 14.6 g/dL 12.1 - 17.2 Hematocrit (Fma/CMC/CTX) 43.3 % 36.1 - 50.3 Platelets 232 10^3/ul 150-400 Lymph% 38.9 20.5-51.1 Mixed% 8.3 Neutrophils % 52.8 Mean Corpuscular Vol 86.1 82.2-97.4 Mean Corpuscular Hemoglobin 29.0 27.6-33.3 Mean Corpuscular Hemo Concen 33.7 32.0-36.0 RDW 14.2 High 11.6-13.7 Mean Platelet Volume 11.0 6.5-11.0 Ua - Micro (Fma) 06/15/2011 Appearance clear Color yellow Glucose neg Bilirubin neg Ketones trace SP Grav >1.030 Blood trace-lysed PH 5.0 Protein neg Urobil 0.2 Nitrite neg Leukocytes (Fma/CMC/[facility]) small Hyaline - /Lpf Granular - /Lpf WBC (Fma,[facility]) 3-6 RBC 0-1 Mucus - /Lpf Epith moderate /Lpf Bacteria 2+ /Hpf Amorphous - /Lpf Crystals, Fluid (Fma/CMC/CTX) - Z#Comments - Lipid Profile 06/15/2011 Cholesterol 174 mg/dL 120-200 HDL 62 mg/dL 30-85 Triglycerides 92 mg/dL 30-200 HDL Risk Factor 2.8 CALC 0.0-4.0 LDL (Calculated) 93 CALC 0-129 VLDL (Calculated) 18 mg/dL 0-50 Laboratory test finding 06/15/2011 B12 418 pg/mL 230-1050 TSH 1.93 mIU/L 0.50-6.00 Laboratory test finding 06/15/2011 Vitamin D, 25 Oh 12.0 ng/mL Low 30.0- 100.0 17 Laboratory test finding 05/12/2010 Thin Prep SEE NOTE 18 W/HPV(Lsil/NIKUNJ/Asc) Ua - Non Micro (Fma) 05/12/2010 Appearance CLEAR Color YELLOW Glucose NEG Bilirubin NEG Ketones TRACE SP Grav 1.030 Blood NEG PH 5.0 Protein NEG Urobil 0.2 Nitrite NEG Leukocytes (Fma/CMC/[facility]) NEG Comprehensive Metabolic Prof 04/14/2010 Albumin 4.4 g/dL 3.8-5.5 Alk. Phos. 80 U/L 30-110 Alt (SGPT) 25 U/L 7-35 Ast (Sgot) 18 U/L 5-34 BUN 19 mg/dL 6-26 Calcium 9.2 mg/dL 8.6-10.2 Chloride 104 mEq/L 94-112 Creatinine 0.9 mg/dL 0.6-1.4 Carbon Dioxide 29 mEq/L 21-32 Glucose 102 mg/dL 70-105 Sodium 142 mEq/L 134-149 Total Bilirubin 0.4 mg/dL 0.2-1.3 Total Protein 7.1 g/dL 6.3-8.1 Potassium 4.3 mEq/L 3.6-5.5 Globulin 2.7 g/dL 2.0-4.8 A/G Ratio 1.7 Calc 0.6-2.2 BUN/Creat Ratio 22.8 Calc 8.0-36.0 Lipid Profile 04/14/2010 Cholesterol 155 mg/dL 120-200 HDL 59 mg/dL 30-85 Triglycerides 102 mg/dL 30-200 HDL Risk Factor 2.6 CALC 0.0-4.0 LDL (Calculated) 75 CALC 0-129 VLDL (Calculated) 20 mg/dL 0-50 Laboratory test finding 04/14/2010 TSH 2.21 mIU/L 0.50-6.00 B12 755 pg/mL 230-1050 Laboratory test finding 04/14/2010 Vitamin D, 25 Oh 15.4 ng/mL Low 32.0- 100.0 19 Rheumatoid Arth Factor 7.5 IU/mL 0.0-13.9 Laboratory test finding 04/14/2010 Sed Rate (Fma/CMC/[facility]) 7MM CBC Electronic ([facility]) 04/14/2010 WBC 4.2 3.6-9.6 RBC 4.97 3.90-5.70 Hemoglobin (Fma/CMC/CTX) 14.3 g/dL 12.1 - 17.2 Hematocrit (Fma/CMC/CTX) 43.4 % 36.1 - 50.3 Platelets 274 10^3/ul 150-400 Lymph% 39.1 20.5-51.1 Mixed% 10.6 Neutrophils % 50.3 Mean Corpuscular Vol 87 82.2-97.4 Mean Corpuscular Hemoglobin 28.8 27.6-33.3 Mean Corpuscular Hemo Concen 33.0 32.0-36.0 RDW 13.0 11.6-13.7 Mean Platelet Volume 9.3 6.5-11.0 Complete Blood Count 08/27/2008 WBC 5.6 x10^3/uL 3.6-9.6 20 Gran# 3.2 x10^3/uL 1.5-7.2 20 Gran% 57.5 % 42.2-75.2 20 HCT 43 % 36-50 20 HGB 14.1 g/dL 12.1-17.2 20 Lymph# 2.3 x10^3/uL 0.7-4.9 20 Lymph% 40.4 % 20.5-51.1 20 MCH 28.3 pg 27.6-33.3 20 MCV 85.3 fL 82.2-97.4 20 MCHC 33.2 g/dL 33.0-35.5 20 Mo# 0.1 x10^3/uL 0.1-0.9 20 Mo% 2.1 % 1.7-9.3 20 MPV 8.8 fL 7.4-10.4 20 PLT 235 x10^3/uL 150-400 20 RBC 4.98 x10^6/uL 3.90-5.70 20 RDW 13.5 % 11.6-13.7 20 Comprehensive Metabolic Prof 08/27/2008 Albumin 4.1 g/dL 3.8-5.5 20 Alk. Phos. 73 U/L 30-110 20 Alt (SGPT) 25 U/L 7-35 20 Ast (Sgot) 19 U/L 5-34 20 BUN 23 mg/dL 6-26 20 Calcium 9.1 mg/dL 8.6-10.2 20 Chloride 101 mEq/L 94-112 20 Creatinine 0.9 mg/dL 0.6-1.4 20 Carbon Dioxide 23 mEq/L 21-32 20 Glucose 100 mg/dL 70-105 20 Sodium 137 mEq/L 134-149 20 Total Bilirubin 0.4 mg/dL 0.2-1.3 20 Total Protein 7.0 g/dL 6.3-8.1 20 Potassium 4.4 mEq/L 3.6-5.5 20 Globulin 2.9 g/dL 2.0-4.8 20 A/G Ratio 1.4 Calc 0.6-2.2 20 BUN/Creat Ratio 24.7 Calc 8.0-36.0 20 Lipid Profile 08/27/2008 Cholesterol 180 mg/dL 120-200 20 HDL 62 mg/dL 30-85 20 Triglycerides 116 mg/dL 30-200 20 HDL Risk Factor 2.9 CALC Low 4.2-7.0 20 LDL (Calculated) 94 CALC 0-129 20 VLDL (Calculated) 23 mg/dL 0-50 20 Laboratory test finding 08/27/2008 B12 488 pg/mL 230-1050 20 Vitamin D 25 Hydroxy 08/27/2008 Vitamin D, 25-Hydroxy 20.5 ng/mL Low 32.0- 100.0 21 Ua - Non Micro (Fma) 08/12/2008 Appearance clear Color yellow Glucose - Bilirubin - Ketones 15mg/dl SP Grav >=1.030 Blood - PH 5.5 Protein - Urobil 0.2 Nitrite - Leukocytes (Fma/CMC/[facility]) - Laboratory test 08/12/2008 Thin Prep SEE NOTE 22 finding W/HPV(Lsil/NIKUNJ/Asc) Surgical Pathology 05/18/2008 Surgical Pathology 23 --- <SEE NOTE> Laboratory test 03/02/2007 Vitamin B12 458 pg/mL 180-914 finding CBC With Electronic 03/02/2007 White Blood Count 5.4 CUMM 4.8-10.8 Diff Abs Basophils 0 0-0.2 Abs Eosinophils 0.1 0-0.6 Absolute Neutrophil Count 2.5 1.5-7.7 Abs Lymphs 2.4 1.0-4.8 Abs Mononuclear 0.4 0-0.8 Basophil % 0.3 % 0-2 Hematocrit 43 % 35-47 Hemoglobin 14.3 g/dL 12.0-16.0 Eosinophil % 2.4 % 0-6 Gran % 45.9 % 38-83 Lymph % 43.8 % 20-45 Mean Corpuscular HGB Cone 34 g/dL 32-36 Mean Corpuscular Hemoglob 29 pg 27-31 Mean Corpuscular Volume 86 um3 79-97 Mean Platelet Volume 9.2 um3 7.4-10.4 Mononuclear % 7.6 % 1-9 Platelet Count 263 CUMM 150-450 Red Cell Count 4.93 CUMM 4.2-5.4 Redcell Distribution WDTH 14 % 10.5-15 Lipid Profile 03/02/2007 Cholesterol/HDL Ratio 2.70 AVERAGE 1-4.44 (Trig/Chol/HDL) Cholesterol 165 mg/dL Less Than 200 24 Triglyceride 92 mg/dL 40-200 High Density Lipoprotein 61 mg/dL High 40-60 25 Low Density Lipoprotein 86 mg/dL Less Than 100 26 Comp Metabolic Panel 03/02/2007 One Over Creatinine 0.83 Anion Gap 6.0 mmol/L 2-11 27 Albumin/Globulin Ratio 1.3 1-3 Albumin 4.0 GM/DL 3.6-5.4 Alkaline Phosphatase 69 U/L 30-110 Alt (SGPT) 27 U/L 14-54 Ast (Sgot) 21 U/L 12-42 BUN 20 mg/dL 6-24 Calcium 9.4 mg/dL 8.7-10.2 Chloride 101 mmol/L 101-111 Co2 (Carbon Dioxide) 29.0 mmol/L 22-32 Globulin 3.1 GM/DL 2-4 Glucose 102 mg/dL 70-105 Potassium 4.7 mmol/L 3.5-5.0 Sodium 136 mmol/L 135-145 Bilirubin Total 0.6 mg/dL 0.4-1.5 Total Protein 7.1 GM/DL 6.2-8.1 BUN/Creatinine Ratio 16.7 8-20 Creatinine 1.2 mg/dL 0.5-1.4 Laboratory test 10/08/2006 Throat - Beta NEGATIVE @48HRS finding Strep [facility] Laboratory test 08/14/2006 [facility] Labs CBC See Image finding Report Surgical Pathology 06/14/2006 Surgical Pathology 28 <SEE NOTE> Liver Profile-ALL 06/08/2006 Albumin 4.2 3.8-5.5 Lab Companie ([facility]) Total Protein 7.4 g/dL 6.3-8.1 Alkaline Phosphatase (F/C/CTX) 77 U/L 30-110 Ast (Sgot) (a/[facility]) 13 U/mL 5-34 Alt (SGPT) ([facility]/FF) 33 10-40 Bilirubin, Total 0.4 mg/dL 0.2-1.3 Bilirubin, Direct 0.2 mg/dL 0-0.6 Bilirubin, Indirect 0.23 ml/dl 0.10-1.0 Lipid Panel-ALL Lab 06/08/2006 Cholesterol ([facility]) 198 mg/dL 120-200 Companies HDL-Chol 56 mg/dL 30-85 Triglyceride 147 mg/dL 30-200 LDL/HDL Chol. Ratio (F/C/CTX) - Chol./HDL Ratio (Fma/CMC/CTX) - Low 30-85 LDL, Calculated ([facility]) 113 mg/dL 0-129 HDL Risk Factor (Fma) 3.5 CALC Low 4.2-7.0 Laboratory test finding 06/08/2006 B12 (a/[facility]) 599 pg/mL 230- 1050 CBC Electronic-ALL Lab 03/14/2006 WBC 5.0 3.6-9.6 Compani RBC 5.22 3.90-5.70 Hemoglobin (Fma/CMC/CTX) 15.5 g/dL 12.1 - 17.2 Hematocrit (Fma/CMC/CTX) 45.5 % 36.1 - 50.3 Mean Corpuscular Vol 87.1 82.2-97.4 Mean Corpuscular Hemaglobin 29.8 27.6-33.3 Mean Corpuscular Hemo Concen 34.2 33.0-36.0 RDW 13.2 11.6-13.7 Platelets 240. 10^3/ul 150-400 Mean Platelet Volume 8.9 7.4-10.4 Neutrophils 54.0 42.2-75.2 Lymphocytes 39.1 % 20.5 - 51.1 Monocytes 6.9 % 1.7-9.3 Eosinophil - Basophil% - Abs Neutrophils - Abs Lymphs - Abs Mononuclear - Abs Eosinophils - Abs Basophils - Laboratory test 03/14/2006 TSH (a/[facility]) 1.33 uIU/ml 0.5-6.0 finding Lipid Panel-ALL Lab 03/14/2006 Cholesterol 293 mg/dL High 120-200 Companies (Fma/CMC/[facility]) HDL-Chol 57 mg/dL 30-85 Triglyceride 168 mg/dL 30-200 LDL/HDL Chol. Ratio (F/C/CTX) - Chol./HDL Ratio (Fma/CMC/CTX) - Low 30-85 LDL, Calculated ([facility]) 203 mg/dL High 0-129 HDL Risk Factor (Fma) 5.2 CALC 4.2-7.0 Comp Metabolic-ALL Lab 03/14/2006 Glucose, Serum 101 mg/dL 70-105 Compani (Fma/CMC/CTX) BUN (Fma/CMC/[facility]) 18 mg/dL 6-26 Creatinine (Fma/CMC/CTX) 0.9 mg/dL 0.6-1.4 Sodium 142 134-149 Potassium 4.4 3.6-5.5 Chloride 101 mEq/L 94-112 Co2 26 21-32 Albumin (Fma/[facility]CC/[facility]) 4.2 3.8-5.5 Total Protein 7.7 g/dL 6.3-8.1 Calcium (Fma/CMC/[facility]) 9.7 mg/dL 8.6-10.2 Alkaline Phosphatase (F/C/CTX) 67 U/L 30-110 Ast (Sgot) (Fma/CMC/[facility]) 56 U/mL High 5-34 Alt (SGPT) (CMC/[facility]) 97 High 10-40 Bilirubin, Total 0.4 mg/dL 0.2-1.3 #GFR, Calculated (CTX) - Laboratory test finding 02/15/2006 Clotest N^NEGATIVE^[facility] Laboratory test finding 12/22/2005 Thin Prep W/HPV SEE IMAGE (Lsil/NIKUNJ/Asc) Ua - Non Micro (Fma) 12/22/2005 Appearance CLEAR Color LT YELLOW Glucose, Urine (Fma/CMC/CTX) NEG Bilirubin NEG Ketones NEG SP Grav 1.025 Blood NEG PH 5.0 Protein NEG Urobil 0.2 Nitrite NEG Leukocytes (Fma/CMC/[facility]) NEG Ua - Micro (Fma New) 08/05/2004 Appearance CLEAR Color LT YELLOW Glucose NEG Bilirubin NEG Ketones NEG SP Grav 1.020 Blood TRACE-LYSED PH 6.5 Protein NEG Urobil 0.2 Nitrite NEG Leukocytes MOD Hyaline - /Lpf Granular - /Lpf WBC'S 8-10 RBC'S 2-4 Mucus SM AMNT /Lpf Epith MOD Bacteria 3+ Amorphous - /Lpf Crystals - /Lpf Comments - Laboratory test finding 08/05/2004 Thinprep W/HPV LGSIL SEE IMAGE (NIKUNJ/ASCUS) Comp Metabolic (Fma) 06/09/2004 Glucose, Serum 103 mg/dL 70-105 Female (Fma/CMC/CTX) BUN (Fma/CMC/[facility]) 16 mg/dL 6-26 Creatinine, Serum 1.0 mg/dL 0.6-1.4 BUN/Creatinin Ratio 15.5 8.0-36 Sodium 143 134-149 Potassium 4.6 3.6-5.5 Chloride 103 mEq/L 94-112 Co2 25 21-32 Calcium (a/[facility]) 9.4 mg/dL 8.6-10.2 Total Protein 7.1 g/dL 6.3-8.1 Albumin ([facility]) 4.2 3.8-5.5 Globulin 2.9 2.0-4.8 A/G Ratio (A/G Ratio) 1.4 0.6-2.2 Alkaline Phosphatase (F/C/CTX) 80 U/L 30-110 Alt (SGPT) (a/CMC/[facility]) 19 7-35 Ast (Sgot) ([facility]) 18 U/mL 5-34 Bilirubin, Total 0.5 mg/dL 0.2-1.3 Lipid Profile ([facility]) Female 06/09/2004 Cholesterol 258 mg/dL High 120-200 Triglyceride 114 mg/dL 30-200 HDL-Chol 48 mg/dL 30-85 LDL, Calculated ([facility]) 187 CALC High 0-129 LDL, Direct - mg/dL 0-130 VLDL 23 0-50 HDL Risk Factor ([facility]) 5.4 CALC 4.2-7.0 Laboratory test finding 06/09/2004 TSH ([facility]) 1.10 uIU/ml 0.5- 6.0 CBC With Manual Dif ([facility]) 06/09/2004 WBC 5.2 3.6-9.6 RBC 4.96 3.90-5.70 Hemoglobin (a/CMC/CTX) 15.0 g/dL 12.1 - 17.2 Hematocrit (a/CMC/CTX) 44.2 % 36.1 - 50.3 Mean Corpuscular Vol 89.2 82.2-97.4 Mean Corpuscular Hemaglobin 30.2 27.6-33.3 Mean Corpuscular Hemo Concen 33.8 33.0-36.0 RDW 13.7 11.6-13.7 Platelets 248. 10^3/ul 150-400 Mean Platelet Volume 8.4 7.4-10.4 Neutrophils 26 Band 2 Lymph From [facility] 61 Monocytes 4 % 1.7-9.3 Eosinophils 4 Basophils - Metamyelocytes - Myelocytes - Promyelocyte - Blast - Atypical Lymph 3 NRBC - Morphology - Comments SEE DETAIL 29 1 SEE RESULT BELOW Name: SARAH GAMBINO Aviva : [address]: Jazmyne Navarrete MD Acct: [id number] Unit: [id number] AGE: 67 Location: [facility] Re10/17/17 SEX: F Status: REG REF SPEC: [id number] EDER: 10/17/17-[address] [facility] [address]: Jazmyne Navarrete MD REQ: [id number] RECD: 10/17/17 STATUS: CLARICE DUENAS DR: Katelynn Vera MD _ ORDERED: LEVEL 4 COMMENTS: [id number] FINAL DIAGNOSIS Uterus, endometrium, biopsy: -- Complex endometrial hyperplasia with atypia, focally suspicious for well- differentiated endometrial adenocarcinoma. Comment: Appropriate surgical intervention should be considered. PRE-OPERATIVE DIAGNOSIS Postmenopausal bleeding GROSS DESCRIPTION The specimen is received in formalin labeled, EMBX, and consists of a 2.6 x 2.3 x 0.7 cm aggregate of coy-brown irregular soft tissue fragments admixed with abundant mucus and red-brown blood clot. The specimen is filtered and submitted entirely in one cassette. Signed by and Reported on: Rosalio Hsu MD [id number] END OF REPORT DEPARTMENT OF PATHOLOGY, [address] [place] [address] Rosalio Hsu M.D. 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 Clinical correlation is recommended. A. Ectocervical/Endocervical Specimen Adequacy: Satisfactory of evaluation Transformation zone component identified Patient Information: HPV: High risk HPV RNA testing regardless of pap results. Actual Specimen Date: 08/13/17 Spec Date if unknown: yrs ?: N Post Menopausal?: N Hysterectomy?: N Previous Abnormal Pap Smears?:N Date Time Test Result Flag (u) Normal Range 08/13/17 1113 @ HPV RNA Negative Negative @ @ The high-risk HPV types detected by the assay include: 16, @ 18, 31, 33, 35, 39, 45, 51, 52, 56, 58, 59, 66, and 68. CONTINUED ON NEXT PAGE DEPARTMENT OF PATHOLOGY, [address] [place] [address] Rosalio Hsu M.D. Director [facility] # [id number] RUN DATE: 08/15/17 [facility] LAB LIVE PAGE 2 Patient: SARAH GAMBINO [id number] (Continued) HPV RESULTS (Continued) Signed by and Reported on: Ni Addison MD 08/15/17 7407 This Pap test was evaluated with the assistance of the OonairPrep Test Imaging System. Due to cytologic findings at the float builder microscope, comprehensive manual rescreening by a Processing Lead may be required. The Pap Smear is a screening test designed to aid in the detection of premalignant and malignant conditions of the uterine cervix. It is not a diagnostic procedure and should not be used as the sole means of detecting cervical cancer. Both false- positive and false- negative reports do occur. Depending on your risk status, a Pap smear should be obtained and evaluated every 1-3 years. END OF REPORT DEPARTMENT OF PATHOLOGY, [address] [place] [address] Rosalio Hsu M.D. Director [facility] # [id number] 3 RESULTS VERIFIED BY REPEAT ANALYSIS 4 No. of containers..01 CYTYC Thin Prep Vial 5 NEGATIVE FOR INTRAEPITHELIAL LESION AND MALIGNANCY. 6 Satisfactory for evaluation. Endocervical and/or squamous metaplastic cells (endocervical component) are present. 7 Z12.4 8 Fany Arango, Processing Lead ([facility]) 9 The Pap smear is a screening test designed to aid in the detection of premalignant and malignant conditions of the uterine cervix. It is not a diagnostic procedure and should not be used as the sole means of detecting cervical cancer. Both false-positive and false-negative reports do occur. 10 This test detects fourteen high-risk HPV types (16/18/31/33/35/39/45/ 51/52/56/58/59/66/68) without differentiation. 11 RESULTS VERIFIED BY REPEAT ANALYSIS 12 RESULTS VERIFIED BY REPEAT ANALYSIS 13 FASTING 14 FASTING 15 1POUR OFF SERUM FROM RED TOP 16 RESULT JOSE MIGUEL'D 17 Vitamin D deficiency has been defined by the [place] [employer] and an Endocrine Society practice guideline as a level of serum 25-OH vitamin D less than 20 ng/mL (1,2). The Endocrine Society went on to further define vitamin D insufficiency as a level between 21 and 29 ng/mL (2). 1. IOM ([place] of [employer]). 2010. Dietary reference intakes for calcium and D. [place]: The National Academies Press. 2. Marcial MF, Linda ROWLAND, Ashanti JACOBSEN, et al. Evaluation, treatment, and prevention of vitamin D deficiency: an Endocrine Society clinical practice guideline. JCEM. 2010; 96(7):1911-30. 18 giddy, [place]. 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 [id number] PATIENT DATA: [id number] SPECIMEN SUBMITTED: * * (HPVII) THIN PREP W/HPV (LSIL/ASC/NIKUNJ) * * ENDOCERVICAL RELEVANT HISTORY: : 4 Prev.normal: 07/28 Para: 4 Comment: LMP: 8 YEARS AGO SPECIMEN ADEQUACY SATISFACTORY FOR EVALUATION, ENDOCERVICAL TRANSFORMATION ZONE COMPONENT PRESENT GENERAL CATEGORIZATION NEGATIVE FOR INTRAEPITHELIAL LESIONS OR MALIGNANCY ADDITIONAL COPIES SENT TO: Screened/Rescreened Electronically Signed Sign Out Date/Time: by: by: HEMALATHA CIRO ECHEVERRIA, 05/13/2010 12:49 CT(ASCP) Thin Prep Pap tests are examined with an FDA-approved location-guidance system (29086). Performed @ [facility] [address] [place] [id number] 19 Recent studies consider the lower limit of 32.0 ng/mL to be a threshold for optimal health. [facility] [place], [place]. J Nutr. 2005 Mar;135(2):317-22. 20 FASTING 21 Recent studies consider the lower limit of 32.0 ng/mL to be a threshold for optimal health. [facility] [place], [place]. J Nutr. 2004;135(2):317-22. 22 [employer]. 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 [id number] PATIENT DATA: [id number] SPECIMEN SUBMITTED: * * (HPVII) THIN PREP W/HPV (LSIL/ASC/NIKUNJ) * * ENDOCERVICAL RELEVANT HISTORY: Menopause: Y : 6 Para: 4 Prev.normal: 2005 SPECIMEN ADEQUACY SATISFACTORY FOR EVALUATION, ENDOCERVICAL TRANSFORMATION ZONE COMPONENT PRESENT GENERAL CATEGORIZATION NEGATIVE FOR INTRAEPITHELIAL LESIONS OR MALIGNANCY ADDITIONAL COPIES SENT TO: NI PEREZ MD Screened/Rescreened by: Electronically Signed by: JULIANA FERREIRA(ASCP) Signed Date and Time: 08/19/2008 11:58 Thin Prep Pap tests are examined with an FDA-approved location-guidance system (02946). Performed @ [facility] [address] [place] [address] [id number] "" 23 ---- RUN DATE: 05/19/08 [facility] NMI LIVE PAGE 1 RUN TIME: 1450 Specimen Inquiry RUN USER: INTERFACE -- Name: DARIUSASHWINISARAH Status: REG REF Re05/18/08 Age/Sex: 57/F Unit#: [id number] Location: [facility]. : 51 -- Specimen: [id number] SOUT Spec Date: 05/18/[address]: Link callahan MD Spec Type: SURGICAL P Received: 05/18/08-1226 Copies to: Ni kelley MD SPECIMEN BIOPSY ESOPHAGOGASTRIC JUNCTION HISTORY CLINICAL INFORMATION: Follow-up ulcer GROSS DESCRIPTION The specimen is received in formalin labelled Sarah Gambino, Biopsy EG Junction, and consists of multiple coy, soft tissue fragments measuring 0.4 x 0.2 x 0.1 cm. Submitted entirely, one cassette. DIAGNOSIS Esophagus, GE junction, biopsy: A. 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 B. Mild reflux esophagitis. C. No dysplasia or malignancy identified. Signed Electronically by: ROSALIO HSU MD 05/19/08 2751 -- -- DEPARTMENT OF PATHOLOGY, [address] [place] [address] [facility] Permit #[id number] Rosalio Hsu M.D. Director Seth Johnston M.D. Fiber Drier Operator Dir clemente -- 24 Classification: Desirable . 25 Classification: High . 26 CALCULATED LDL APPROXIMATES THE VALUE OF A DIRECT LDL MEASUREMENT. Classification: Optimal Level . 27 Anion gap measurement may be of limited value in the presence of any alkalosis, especially in a combined acid base disorder. . 28 ---- RUN DATE: 06/15/06 [facility] NMI LIVE PAGE 1 RUN TIME: 1406 Specimen Inquiry RUN USER: INTERFACE [id number] SARAH GAMBINO 56/F <REG REF 06/14> ([id number]) JAILENE Staples MD, Link Parry -- Specimen: [id number] SOUT Spec Date: 06/14/[address]: Link callahan MD Spec Type: SURGICAL P Received: 06/14/06-8658 Copies to: Ni kelley MD SPECIMEN BIOPSY ESOPHAGOGASTRIC JUNCTION HISTORY CLINICAL INFORMATION: Patient with dysphagia, erosive esophagitis for fol low-up GROSS DESCRIPTION The specimen is received in formalin labelled Sarah Gambino, Biopsy EG Junction, and consists of one, 0.2 cm. pink bit. Total, one block. DIAGNOSIS Gastroesophageal junction, biopsy - A) Squamocolumnar junction with changes suggestive of reflux esophagitis. B) Chronic inflammation. C) Reactive glandular atypia. D) No intestinal metaplasia, dysplasia, or malignancy. Signed Electronically by: PASHA SWAN MD 06/15/06 1406 -- -- DEPARTMENT OF PATHOLOGY, [address] [place] [address] [facility] Permit #[id number] Pasha Swan II, M.D. Director Carlos Ruffin irector -- 29 RBC AND PLTS APPEAR NORMAL ON SMEAR Procedures Date CPT Code Description Status 10/04/2017 Mammogram Completed 11/05/2015 Mammogram Completed 10/15/2015 69246 CPHL SHQ Completed 12/29/2014 Colonoscopy Completed 11/02/2014 Mammogram Completed 04/20/2014 93451 Pulse Oximetry Completed 09/24/2013 44053 CPHL SHQ Completed 01/24/2013 76622 Pulse Oximetry Completed 07/16/2012 Mammogram Completed 10/27/2010 38081 Injection Subcutaneous Or Intramuscular Completed 09/09/2010 76244 Injection Subcutaneous Or Intramuscular Completed 04/07/2010 Mammogram Completed 05/07/2006 44289 Injection Subcutaneous Or Intramuscular Completed 04/05/2006 26926 Injection Subcutaneous Or Intramuscular Completed 03/08/2006 96726 Injection Subcutaneous Or Intramuscular Completed 01/19/2006 99289 Injection Subcutaneous Or Intramuscular Completed 12/22/2005 52067 Injection Subcutaneous Or Intramuscular Completed 11/14/2005 77565 Injection Subcutaneous Or Intramuscular Completed 10/20/2005 36003 Injection Subcutaneous Or Intramuscular Completed 10/16/2005 Mammogram Completed 09/19/2005 90854 Injection Subcutaneous Or Intramuscular Completed 08/24/2005 75099 Injection Subcutaneous Or Intramuscular Completed 07/18/2005 13949 Injection Subcutaneous Or Intramuscular Completed 06/02/2005 23853 Injection Subcutaneous Or Intramuscular Completed 05/02/2005 47900 Injection Subcutaneous Or Intramuscular Completed 03/30/2005 63610 Injection Subcutaneous Or Intramuscular Completed 03/02/2005 40811 Injection Subcutaneous Or Intramuscular Completed 12/20/2004 67606 Injection Subcutaneous Or Intramuscular Completed 11/14/2004 35662 Injection Subcutaneous Or Intramuscular Completed Encounters Type Date Location Provider CPT E/M Dx Office Visit 10/01/2017 8:40a [facility] Reggie Peters, [address]30[address] Z01.818 M25.561 M17.11 M25.461 Office Visit 08/13/2017 10:10a Main Office Katelynn Vera M.D. 68536 Z00.00 M15.0 I10 Z12.31 E66.9 D72.829 N95.0 Z23 Office Visit 07/30/2017 11:30a [facility] Antonette Dee 26666 J06.9 R05 Office Visit 08/03/2016 6:00p Main Office Eulalio Celis M.D. 73919 H10.31 Office Visit 01/21/2016 3:50p [facility] Katelynn Vera M.D. 81289 M25.562 I10 W01.198A Office Visit 04/15/2015 4:15p [facility] VIVIANA Mares 25727 R05 Office Visit 03/03/2015 2:30p [facility] Katelynn Vera M.D. 05680 M54.31 L01.00 Office Visit 10/01/2014 8:00a Main Office Juan Miguel Cherry M.D. 17847 272.4 724.3 V76.12 V76.51 327.23 Office Visit 04/20/2014 12:30p [place] [address] 465.9 Office Visit 04/02/2014 8:00a Main Office Juan Miguel Cherry M.D. 76075 272.4 281.1 Office Visit 09/24/2013 2:20p Main Office Juan Miguel Cherry M.D. 06419 V70.0 719.43 272.4 715.09 Office Visit 01/24/2013 9:45a [facility] Antonette Mcdonald 35628 786.2 719.43 Office Visit 07/09/2012 8:10a [facility] Dagoberto Carter M.D. 31579 V70.0 V77.91 V76.10 V76.51 278.01 281.1 V49.81 796.2 v05.8 599.72 Office Visit 04/29/2012 1:00p Main Office Keisha NeriUVALDO 24609 461.0 Office Visit 02/21/2012 1:00p [facility] Ni Saenz, [facility] 70783 786.2 465.9 Office Visit 06/15/2011 8:00a Main Office Jessie Ramirez M.D. 53279 V70.0 272.4 281.1 278.01 530.81 268.9 791.7 Office Visit 05/12/2010 10:00a [facility] Ni Perez, 43789 V72.31 M.DBrinda V70.0 272.4 281.1 530.81 278.00 112.89 Office Visit 04/21/2010 10:45a [facility] Dacia Torres [facility] 43359 461.9 Office Visit 03/31/2010 2:40p [facility] Ni Perez, 97491 272.4 M.D. 530.81 281.1 715.09 268.9 Office Visit 08/12/2008 5:20p Main Office Lindsay Delgado M.D. 67378 281.1 272.4 715.09 V70.0 V06.5 Office Visit 06/12/2008 11:10a Main Office Lindsay Delgado M.D. 16179 465.9 Office Visit 03/03/2008 9:30a [facility] Bautista Dee-C 79844 465.9 Office Visit 09/20/2007 2:15p Main Office Dacia Torres [facility] 35372 916.5 Office Visit 09/16/2007 7:15p Main Office Dacia Torres [employer] 47082 916.5 Office Visit 02/28/2007 2:20p Main Office Ni Perez, 89964 281.1 M.DBrinda 272.4 354.0 715.09 Office Visit 10/08/2006 1:50p [facility] Rudy Lora M.D. 98330 461.0 Office Visit 06/28/2006 2:10p Main Office Ni saldana James, 30577 281.1 M.DBrinda 272.4 354.0 Office Visit 05/28/2006 2:45p Main Office Alana Aguirre Bautista-Junito 00974 354.0 842.13 Office Visit 04/05/2006 1:15p Main Office Ni les Ramirez M.D. 80672 995.3 726.32 709.9 281.1 Office Visit 04/05/2006 1:10p Main Office Ni les Ramirez M.D. 03804 995.3 726.32 709.9 281.1 Office Visit 12/22/2005 1:20p [facility] Ni saldana James, 82150 281.1 M.D. V70.0 V72.31 787.2 783.1 719.46 V04.81 Office Visit 05/09/2005 2:45p Main Office VIVIANA Martínez-Junito 37095 373.00 372.00 Office Visit 05/02/2005 2:30p Main Office VIVIANA Martínez-Junito 76205 372.00 382.9 373.00 281.1 Office Visit 03/30/2005 1:15p Main Office Alana AguirreBautista-C 94941 466.0 281.1 Office Visit 03/17/2005 2:15p [facility] Alana AguirreBautista-C 84102 465.9 Office Visit 12/24/2004 10:30a Main Office VIVIANA Martínez-Junito 57917 462 Office Visit 11/14/2004 2:40p Main Office Ni saldana James, 22005 281.1 M.D. 693.1 Office Visit 11/07/2004 10:00a [facility] Eulalio Celis M.D. 81179 616.2 Office Visit 08/09/2004 10:40a Main Office Eulalio Celis M.D. 52364 462 V01.79 Office Visit 08/05/2004 9:20a [facility] Nipuneet Perez, 15739 272.4 M.D. V70.0 239.2 455.6 Office Visit 05/17/2004 10:00a Main Office Ni Perez M.D. 81189 786.50 780.50 Office Visit 04/05/2004 2:00p [facility] AlanaAntonette Garza 07453 850.9 Office Visit 12/10/2003 1:15p Main Office Antonette Mcdonald 77781 466.0 Office Visit 08/25/2002 2:30p Main Office Dacialaci Torres [facility] 54008 719.46 Plan of Care Future Appointment(s):08/15/2018 8:40 am - Katelynn Vera M.D. at Main [id number] - Katelynn Vera M.D.Z01.818 Encounter for other preprocedural examinationComments:Cleared for surgery. Will fax note to ordering physician. HOLD NSAIDS and supplements 5-7 days prior to tttuhtoD00.11 Unilateral primary osteoarthritis, right kneeI10 Essential (primary) hypertensionComments:The patient will continue to monitor blood pressure and let me know the blood pressure results if there are readings persistently above 140/90. Goal blood pressure is less than 130/80. Recommend low salt/cardiac diet such as the Mediterranean diet and routine exercise at least 30 minutes a day.G47.33 Obstructive sleep apnea (adult) (pediatric)Comments:wears CPAP nightly with improvement of symptomsAllComments:~B_~U_Medication Management~b_~u_ Patient Understands medications she's taking? Yes No Are there Barriers to Adherence? Yes No Has the patient been asked about herbal supplements and therapies, and OTC meds? Yes No
[2018-02-26] MEDS: HYDROmorphone INJ1* 1 MG/ML SYRINGE IV PRN ×5 (14:45→15:08)
--- NOTE | 2018-02-26 15:43 | PN ---
Progress Note - Progress Note Date of Service: 02/26/18 Note: resting comforatably with no significant complaints of pain. dressing clean/ intact. able to dorsi flex/plantar flex, 2+ DP pulse and intact sensation
[2018-02-26] MEDS: Lactated Ringers 1000 ML Bag* 1,000 ML IV SCH (16:53)
[2018-02-26] MEDS: Atorvastatin* 10 MG TAB PO SCH (17:47)
--- NOTE | 2018-02-26 18:15 | CONSULT ---
Subjective Date of Service: 02/26/18 Interval History: This is a 67 year old female with history of ELDA, HTN, HLP,GERD, uterine cancer , s/p hysterectomy in November 2017 that presents to the hospital today for elective Left Total Knee Arthroplasty. Having end stage osteoarthritis and failing conservative treatment, patient was deemed a candidate for the procedure with Dr. Mari. We have been requested by orthopedics to co-manage the patient medically. Patient is seen in her room, sleepy but arousable and appropriate. Family at bedside. Family History: Unchanged from Admission - non-contributory Social History: Unchanged from Admission - denies smoking, ETOH or illicit drugs Past Medical History: Unchanged from Admission - as stated above Review of Systems - Measurements Intake and Output: Intake and Output Last 24 Hours 02/24/18 02/25/18 02/26/18 02/27/18 06:59 06:59 06:59 06:59 Intake Total 1600 Output Total 300 Balance 1300 Weight 274 lb Intake: IV Fluids 1600 3GM CEFAZOLIN 100ML 100 LR 1000 NS 500 Output: Tatum 300 - Review of Systems Constitutional Symptoms: Negative: Weight Gain, Weight Loss, Weakness, Fatigue, Fever, Night Sweats, Unexplained Falls, Other Dermatology: Negative: Normal, Rash, Skin Lesions, Cancer, Skin Lumps, Other HEENT: Negative: Normal, Change in Hearing, Vertigo, Dental Problems, Tinnitus, Sinus Problem, Other Eyes: Negative: Normal, Change in Vision, Double Vision, Eye Pain, Glaucoma, Cataract, Contacts or Glasses, Other Thyroid: Negative: Normal, Goiter, Thyroid Nodule, Cold Intolerance, Heat Intolerance , Sweatiness, Tremor, Frequent Defecation, Constipation, Palpitations, Primary Hypothyroidism, Primary Hyperthyroidism, Weight Loss, Weight Gain, Change in Skin/Hair, Change in Menstruation, Radiation Exposure, Other Pulmonary: Negative: Normal, Cough, Sputum, Hemoptysis, Wheezing, Respiratory Distress, Shortness of Breath, COPD, Asthma, Exercise Intolerance, Home Oxygen, Other Cardiology: Negative: Normal, Chest Pain, Shortness of Breath, Palpitations, Swelling of Ankles, Peripheral Vascular Dis, Edema, Faintness, Syncope, Claudication, Proximal NocturnalDyspnea, Orthopnoea, Other Gastroenterology: Negative: Normal, Abdominal Pain, Nausea, Vomiting, Anorexia, Indigestion, Difficulty Swallowing, Heartburn, Constipation, Diarrhea, Blood in Stools, Change in Bowel Habits, Haematemesis, Melena, Other Genital - Urinary: Negative: Normal, Dysuria, Hematuria, Polyuria, Nocturia, Other Genitourinay - Female: Positive: Menopause. Negative: Menses Normal, Vaginal Discharge, Dysmenorrhea, Other Musculoskeletal: Positive: Joint Pain, Joint Stiffness, Arthritis Endocrinology: Positive: Obesity Hematologic/Lymphatic: Negative: Anemia, Easy Brusing, Hx Leukemia, Hx Lymphoma, Use of Anticoagulant, Use of Antiplatelet Drugs, Other Neurology: Negative: Normal, Headache, Migraines, Change in Vision, Diplopia, Dizziness , Change in Balancing, Change in Coordination, Change in Memory, Change in Speech, Change in Sphincter Function, Change in Walking, Numbness\Paresthesiae, Unexplained Weakness, Hx of Stroke\TIA, Hx of Seizures, Other Psychiatry: Positive: Normal Allergic/Immunologic: Negative: Hx Anaphylaxis, Hx Angioedema, Hx Environmental, Hx Seasonal, Athsma, Hx HIV, Immunocompromise, Swollen Glands LymphNodes, Other Objective Active Medications: Acetaminophen (Tylenol Tab*) 975 mg PO Q8H [facility] Atorvastatin Calcium (Lipitor*) 10 mg PO 1700 [facility] Last Admin: 02/26/18 17:47 Dose: 10 mg Bisacodyl (Dulcolax Supp*) 10 mg TN DAILY PRN PRN Reason: constipation Cyclobenzaprine HCl (Flexeril Tab*) 10 mg PO TID PRN PRN Reason: SPASMS Diphenhydramine HCl (Benadryl Iv*) 12.5 mg IV Q6H PRN PRN Reason: PRURITIS Docusate Sodium (Colace Cap*) 100 mg PO BID [facility] Enoxaparin Sodium (Lovenox(*)) 40 mg SUBCUT Q24H [facility] Hydrochlorothiazide (Hydrodiuril Tab*) 12.5 mg PO QAM [facility] Tranexamic Acid 1,000 mg/ (Sodium Chloride) 60 mls @ 120 mls/hr IV ONCE Stop: 02/26/18 23:59 Cefazolin Sodium 1 gm/ Sodium (Chloride) 50 mls @ 200 mls/hr IVPB Q8H [facility] Stop: 02/27/18 12:14 Lactated Ringer's (Lactated Ringers 1000 Ml Bag*) 1,000 mls @ 100 mls/hr IV PER RATE [facility] Last Admin: 02/26/18 16:53 Dose: 100 mls/hr Lactulose (Lactulose*) 30 ml PO Q6H PRN PRN Reason: constipation Magnesium Hydroxide (Milk Of Magnesia Liq*) 30 ml PO BID GREG Magnesium Hydroxide (Milk Of Magnesia Liq*) 30 ml PO Q6H PRN PRN Reason: constipation Morphine Sulfate (Morphine Vial*) 2 mg IV Q2H PRN PRN Reason: PAIN Ondansetron HCl (Zofran Inj*) 4 mg IV Q6H PRN PRN Reason: nausea Ondansetron HCl (Zofran Tab*) 4 mg PO Q6H PRN PRN Reason: NAUSEA Oxycodone HCl (Roxycodone Tab*) 10 mg PO Q4H PRN PRN Reason: SEVERE PAIN Oxycodone/Acetaminophen (Percocet 5/325 Tab*) 1 tab PO Q4H PRN PRN Reason: PAIN Oxycodone/Acetaminophen (Percocet 5/325 Tab*) 2 tab PO Q4H PRN PRN Reason: PAIN Polyethylene Glycol/Electrolytes (Miralax*) 17 gm PO DAILY PRN PRN Reason: Constipation Tramadol HCl (Ultram*) 50 mg PO Q6H PRN PRN Reason: PAIN Last Admin: 02/26/18 17:48 Dose: 50 mg Vital Signs - 8 hr 02/26/18 02/26/18 02/26/18 10:21 14:33 14:35 Temperature 97.3 F 97.0 F Pulse Rate 96 119 118 Respiratory 16 18 Rate Blood Pressure 144/104 168/101 (mmHg) O2 Sat by Pulse 97 93 94 Oximetry 02/26/18 02/26/18 02/26/18 14:40 14:45 14:51 Temperature Pulse Rate 113 108 Respiratory 20 19 15 Rate Blood Pressure 176/108 146/74 (mmHg) O2 Sat by Pulse 94 97 Oximetry 02/26/18 02/26/18 02/26/18 14:56 15:00 15:03 Temperature Pulse Rate 110 Respiratory 19 20 20 Rate Blood Pressure 169/107 (mmHg) O2 Sat by Pulse 92 Oximetry 02/26/18 02/26/18 02/26/18 15:08 15:15 15:30 Temperature Pulse Rate 108 109 Respiratory 25 20 18 Rate Blood Pressure 151/95 159/105 (mmHg) O2 Sat by Pulse 91 90 Oximetry 02/26/18 02/26/18 02/26/18 15:45 16:00 16:01 Temperature Pulse Rate 106 103 106 Respiratory 16 14 16 Rate Blood Pressure 150/81 138/80 (mmHg) O2 Sat by Pulse 91 90 91 Oximetry 02/26/18 16:15 Temperature Pulse Rate 104 Respiratory 18 Rate Blood Pressure 139/79 (mmHg) O2 Sat by Pulse 92 Oximetry Oxygen Devices in Use Now: None Appearance: sleepy, NAD Eyes: No Scleral Icterus, PERRLA Ears/Nose/Mouth/Throat: NL Teeth, Lips, Gums, Mucous Membranes Moist Neck: NL Appearance and Movements; NL JVP, Trachea Midline Respiratory: Symmetrical Chest Expansion and Respiratory Effort, Clear to Auscultation Cardiovascular: NL Sounds; No Murmurs; No JVD, RRR, No Edema Abdominal: NL Sounds; No Tenderness; No Distention Extremities: No Edema, No Clubbing, Cyanosis Skin: No Rash or Ulcers, - - dressing CDI Neurological: Alert and Oriented x 3, NL Sensation, NL Muscle Strength and Tone Nutrition: Taking PO's Assessment/Plan - Billing Assessment: This is a 67 year old female with history of end-stage osteoarthritis of the left knee, POD0 LTKA. Recommendations: 1. OA - POC as per orthopedics, pain control, bowel regimen, OOB with PT/OT, monitor H&H and renal function post-operatively 2. ELDA - Has CPAP from home, continue to use 3. HTN - Continue HCTZ 12.5mg daily 4. HLP - Continue statin 5. GERD - not on medication, monitor 6. Hx of Uterine Cancer - in surgical remission VTE PPX: - Lovenox-coumadin bridge Diet: - Regular, as tolerated Code Status: - Full Code Admission Status and Rationale: Inpatient as per orthopedics, dispo TBD Thank you for the courtesy of this consult. We will continue to follow the patient along with you.
[2018-02-26] MEDS: ceFAZolin 1 GM ADVAN(*) 1 GM in NS 0.9% 50 ML* 50 ML IVPB SCH (19:58)
[2018-02-26] MEDS: Docusate CAP* 100 MG PO SCH (21:43)
[2018-02-26] MEDS: oxyCODONE TAB* 5 MG TAB PO PRN (21:43)
[2018-02-26] MEDS: oxyCODONE/Acetamin 5/325 MG* TAB PO PRN (23:57)
[2018-02-27] MEDS: Magnesium Hydroxide LIQ* 30 ML UDC PO SCH ×3 (00:01→20:14)
[2018-02-27] MEDS: Acetaminophen TAB* 325 MG PO SCH ×4 (00:10→22:47)
[2018-02-27] MEDS: oxyCODONE TAB* 5 MG TAB PO PRN ×4 (02:15→21:45)
[2018-02-27] MEDS: Lactated Ringers 1000 ML Bag* 1,000 ML IV SCH (03:07)
[2018-02-27] MEDS: ceFAZolin 1 GM ADVAN(*) 1 GM in NS 0.9% 50 ML* 50 ML IVPB SCH ×2 (03:52→12:01)
[2018-02-27] MEDS: oxyCODONE/Acetamin 5/325 MG* TAB PO PRN ×4 (03:56→19:05)
[2018-02-27 05:37] LABS: Hematocrit 38 % (35-47); Hemoglobin 12.7 g/dl (12.0-16.0); Mean Platelet Volume 8.4 fL (7.4-10.4); Platelet Count 216 10^3/ul (150-450)
[2018-02-27 05:44] LABS: INR 0.97 (0.77-1.02)
[2018-02-27 05:53] LABS: BUN/Creatinine Ratio 23.5 (8-20); Calcium 8.4 mg/dL (8.6-10.3); EGFR Non-African American 86.6 (>60); Potassium 4.2 mmol/L (3.5-5.0)
--- NOTE | 2018-02-27 08:21 | PN ---
Progress Note - Progress Note Date of Service: 02/27/18 SOAP: Subjective: []Patient seen and examined at bedside. She feels well without CP, SOB, dizziness or nausea. Right knee pain is well controlled, rated 3/10, patient is progressing towards goals with PT Objective: []General: NAD, family at bedside, patient socializing comfortably RLE: Knee dressing CDI, cryo cuff in use, thigh is soft, DF/PF intact, sensation intact distally, DP2+ Calves supple and nontender without erythema, edema or palpable cords Assessment: []POD [address] Mari 02/26/18 Plan: []WBAT PT/OT Lovenox bridge to coumadin, coumadin 8 mg today hyponatremia - stop IV fluids, resume normal diet and repeat sodium level tomorrow Vital Signs Temp 98.3 F 02/27/18 03:54 Pulse 89 02/27/18 03:54 Resp 18 02/27/18 06:17 BP 132/70 02/27/18 03:54 Pulse Ox 96 02/27/18 03:54 Intake & Output 02/26/18 02/27/18 02/27/18 18:59 06:59 18:59 Intake Total 1600 1510 Output Total 300 1650 Balance 1300 -140 Weight 274 lb Intake: IV Fluids 1600 1030 3GM CEFAZOLIN 100ML 100 ABX - CEFAZOLIN 50 LR 1000 980 NS 500 Oral 480 Output: Tatum 300 1650 Laboratory Last Values Hgb 12.7 g/dl (12.0-16.0) 02/27/18 05:20 Hct 38 % (35-47) 02/27/18 05:20 Plt Count 216 10^3/ul (150-450) 02/27/18 05:20 MPV 8.4 fL (7.4-10.4) 02/27/18 05:20 INR (Anticoag Therapy) 0.97 (0.77-1.02) 02/27/18 05:20 Sodium 133 mmol/L (135-145) L 02/27/18 05:20 Potassium 4.2 mmol/L (3.5-5.0) 02/27/18 05:20 Chloride 102 mmol/L (101-111) 02/27/18 05:20 Carbon Dioxide 26 mmol/L (22-32) 02/27/18 05:20 Anion Gap 5 mmol/L (2-11) 02/27/18 05:20 BUN 16 mg/dL (6-24) 02/27/18 05:20 Creatinine 0.68 mg/dL (0.51-0.95) 02/27/18 05:20 Est GFR ( Amer) 104.7 (>60) 02/27/18 05:20 Est GFR (Non-Af Amer) 86.6 (>60) 02/27/18 05:20 BUN/Creatinine Ratio 23.5 (8-20) H 02/27/18 05:20 Glucose 124 mg/dL (70-100) H 02/27/18 05:20 Calcium 8.4 mg/dL (8.6-10.3) L 02/27/18 05:20
[2018-02-27] MEDS: Hydrochlorothiazide TAB* 25 MG PO SCH (08:32)
[2018-02-27] MEDS: Docusate CAP* 100 MG PO SCH ×2 (08:32→20:13)
[2018-02-27] MEDS: Enoxaparin(*) 40 MG/0.4 ML SYR SUBCUT SCH (12:02)
--- NOTE | 2018-02-27 13:37 | OP ---
DATE OF OPERATION: 02/26/18 - ROOM #348 DATE OF : 52 SURGEON: Mylene Mari MD PULP DRIER: HÉCTOR Foote. Ms. Toribio did help throughout the procedure with preparation of the leg, wound retraction, manipulation of the knee and wound closure ANESTHESIOLOGIST: Dr. Ponce. ANESTHESIA: General. PRE-OP DIAGNOSIS: Severe end-stage degenerative osteoarthritis of the right knee joint. POST-OP DIAGNOSIS: Severe end-stage degenerative osteoarthritis of the right knee joint. OPERATIVE PROCEDURE: Right total knee arthroplasty. TOURNIQUET TIME: 58 minutes. COMPLICATIONS: None. ESTIMATED BLOOD LOSS: 200 cc. SPECIMENS: Bone and cartilage from the right knee joint sent to Pathology. HARDWARE USED: This is cemented De Leon [employer] Nephew total knee arthroplasty hardware. Two packages of Simplex bone cement. For the femur, a right 5 narrow Oxinium Legion posterior stabilized femoral component. For the tibia, a size 3 Mirela II right tibial baseplate. For the insert, a 9-mm posterior stabilized articular insert, size 3-4 and for the patella, a 32-mm 3-peg all poly patella with 7.5 thickness. BRIEF HISTORY/INDICATIONS: Ms. Villalobos is a 67-year-old female with years of increasingly severe right knee pain. Due to continued pain and decreased quality of life, she elected to undergo right total knee arthroplasty. She failed conservative treatment with antiinflammatories, pain medications, physical therapy and intraarticular injections. Radiographs showed bone-on- bone arthritis. Informed consent was obtained from the patient. She understood the risks of surgery included, but were not limited to bleeding, infection, damage to nearby structures, continued pain, need for further surgery, intraoperative fracture, nerve palsy, hardware failure or loosening, knee stiffness, loss of motion, stroke, heart attack, blood clot, and . She wished to proceed. INTRAOPERATIVE FINDINGS: Intraoperatively, the patient's morbid obesity caused her to flex only to 90 degrees pre and postoperatively. She was noted to have extensive osteoarthritis with full-thickness cartilage loss. She had extensive osteophyte formation. DESCRIPTION OF PROCEDURE: Ms. Villalobos was identified in the preanesthesia unit. Her right lower extremity was marked as the correct operative side. Informed consent was signed and placed in the chart. The patient was taken to the operating room and placed under general anesthesia. A Tatum catheter was placed. Tourniquet was placed on the right thigh. Right lower extremity was prepped and draped in the usual sterile fashion. Preop time-out was made to correctly identify the patient, side and site. Appropriate perioperative antibiotics were given within 1 hour of incision. The tourniquet was inflated and total tourniquet time for this procedure was 58 minutes. A midline incision was made with a 10 blade and carried down to the extensor mechanism. A new 10 blade was used to make a standard medial parapatellar arthrotomy. The patella was subluxed laterally. Electrocautery was used to elevate soft tissue off the superomedial tibia to the mid sagittal plane. The knee was flexed up. The anterior horn of the lateral meniscus and ACL were sharply released. A drill was used to enter the distal femur. Intramedullary distal femoral cutting guide was pinned on the distal femur. Oscillating saw was used to make the distal femoral cut. Next, the external rotation guide was pinned on the distal femur. Distal femur was sized to a size 5. Size 5 multi- cutting jig was pinned on the distal femur. Oscillating saw was used to make the appropriate 4 chamfer cuts. The PCL was completely released and the tibia was subluxed anteriorly. Extramedullary tibial cutting guide was pinned on the proximal tibia. Oscillating saw was used to make the proximal tibial cut perpendicular to the mechanical axis of the tibia. The bone was carefully removed. The knee was brought out to full extension. A spacer block had good fit with the knee in full extension. Medial and lateral ligaments were well balanced. Flexion and extension gaps were well balanced. The knee was flexed up. The tibial tray and drop laura once again confirmed a satisfactory tibial cut. A lamina sales project coordinator was placed both medially and laterally. Any remaining meniscus was carefully removed using electrocautery. Curved osteotome was used to remove any posterior osteophytes. A size 5 narrow right femoral component was impacted onto the distal femur and had excellent fit and stability. The box for the posterior stabilized implant was prepared using a reamer and box cut osteotome. A size 3 tibial tray trial with a 9- mm insert trial was placed and the knee was taken through a range of motion. The knee had full extension to 90 degrees of flexion. Body habitus limited flexion. There was satisfactory patellofemoral tracking. The patella was everted. 7 mm of patellar bone and cartilage was carefully removed using an oscillating saw. The patella was sized to a size 32. Three peg holes were drilled through the size 32 guide. A 32 trial patella with 7.5 thickness was placed and the knee was taken through a range of motion. There was satisfactory patellofemoral tracking. All trials were removed. The tibia was subluxed anteriorly and sized to a size 3. Proximal tibia was prepared using a size 3 keel punch. All bony cut surfaces were copiously irrigated with sterile saline and dried. Final implants were cemented into place starting with the tibia, followed by the femur , and last the patella. A 9-mm insert trial was placed and the knee was brought out into full extension. Tourniquet was turned down at 58 minutes. Electrocautery was used to obtain meticulous hemostasis. The wound was copiously irrigated with sterile saline. Once the cement had fully cured, the insert trial was removed. Any excess cement was removed from around the capsule and hardware. Final insert chosen was a 9-mm articular Mirela II, size 3-4, 9 mm. This is a posterior stabilized insert. This was locked into position on the tray. Stability of the insert was checked and rechecked and noted to be stable. The knee was copiously irrigated with sterile saline. The extensor mechanism was closed using interrupted #1 Vicryls. The rest of the incision was closed in a layered fashion using 0 and 2-0 Vicryls. Skin was closed using running 3- 0 nylon suture. Sterile Xeroform, 4x4s, and Webril were used to cover the incision. Beto wrap and cold pack were placed over this. The patient's anesthesia was reversed without difficulty. She was taken to the PACU in stable condition. Intended weightbearing will be weightbearing as tolerated. Intended DVT prophylaxis will be Coumadin with a Lovenox bridge. [id number]/[facility] #: [id number] [place]
--- NOTE | 2018-02-27 15:54 | PN ---
Subjective Date of Service: 02/27/18 Interval History: Patient seen and examined. Feeling well, no acute overnight events. Surgical pain well controlled, denies SOB, no chest pain, no calf tenderness. Utilizing CPAP at night without issue. Family History: Unchanged from Admission - non-contributory Social History: Unchanged from Admission - denies smoking, ETOH or illicit drugs Past Medical History: Unchanged from Admission - as stated above Objective Active Medications: Acetaminophen (Tylenol Tab*) 975 mg PO Q8H [facility] Last Admin: 02/27/18 14:03 Dose: Not Given Atorvastatin Calcium (Lipitor*) 10 mg PO 1700 [facility] Last Admin: 02/26/18 17:47 Dose: 10 mg Bisacodyl (Dulcolax Supp*) 10 mg PA DAILY PRN PRN Reason: constipation Cyclobenzaprine HCl (Flexeril Tab*) 10 mg PO TID PRN PRN Reason: SPASMS Diphenhydramine HCl (Benadryl Iv*) 12.5 mg IV Q6H PRN PRN Reason: PRURITIS Docusate Sodium (Colace Cap*) 100 mg PO BID [facility] Last Admin: 02/27/18 08:32 Dose: 100 mg Enoxaparin Sodium (Lovenox(*)) 40 mg SUBCUT Q24H [facility] Last Admin: 02/27/18 12:02 Dose: 40 mg Hydrochlorothiazide (Hydrodiuril Tab*) 12.5 mg PO QAM [facility] Last Admin: 02/27/18 08:32 Dose: 12.5 mg Lactated Ringer's (Lactated Ringers 1000 Ml Bag*) 1,000 mls @ 100 mls/hr IV PER RATE [facility] Last Admin: 02/27/18 03:07 Dose: 100 mls/hr Lactulose (Lactulose*) 30 ml PO Q6H PRN PRN Reason: constipation Magnesium Hydroxide (Milk Of Magnesia Liq*) 30 ml PO BID [facility] Last Admin: 02/27/18 08:33 Dose: 30 ml Magnesium Hydroxide (Milk Of Magnesia Liq*) 30 ml PO Q6H PRN PRN Reason: constipation Morphine Sulfate (Morphine Vial*) 2 mg IV Q2H PRN PRN Reason: PAIN Ondansetron HCl (Zofran Inj*) 4 mg IV Q6H PRN PRN Reason: nausea Ondansetron HCl (Zofran Tab*) 4 mg PO Q6H PRN PRN Reason: NAUSEA Oxycodone HCl (Roxycodone Tab*) 10 mg PO Q4H PRN PRN Reason: SEVERE PAIN Last Admin: 02/27/18 12:02 Dose: 10 mg Oxycodone/Acetaminophen (Percocet 5/325 Tab*) 1 tab PO Q4H PRN PRN Reason: PAIN Oxycodone/Acetaminophen (Percocet 5/325 Tab*) 2 tab PO Q4H PRN PRN Reason: PAIN Last Admin: 02/27/18 13:59 Dose: 2 tab Polyethylene Glycol/Electrolytes (Miralax*) 17 gm PO DAILY PRN PRN Reason: Constipation Tramadol HCl (Ultram*) 50 mg PO Q6H PRN PRN Reason: PAIN Last Admin: 02/26/18 17:48 Dose: 50 mg Warfarin Sodium (Coumadin Tab(*)) 8 mg PO ONCE@1700 ONE; Protocol Stop: 02/27/18 17:01 Vital Signs - 8 hr 02/27/18 02/27/18 02/27/18 08:00 08:31 08:32 Temperature Pulse Rate Respiratory 18 18 16 Rate Blood Pressure (mmHg) O2 Sat by Pulse 97 Oximetry 02/27/18 02/27/18 02/27/18 11:17 12:01 12:02 Temperature 98.2 F Pulse Rate 86 Respiratory 17 18 18 Rate Blood Pressure 148/71 (mmHg) O2 Sat by Pulse 96 Oximetry 02/27/18 13:59 Temperature Pulse Rate Respiratory 18 Rate Blood Pressure (mmHg) O2 Sat by Pulse Oximetry Oxygen Devices in Use Now: None, CPAP Appearance: alert, NAD Eyes: No Scleral Icterus, PERRLA Ears/Nose/Mouth/Throat: NL Teeth, Lips, Gums, Mucous Membranes Moist Neck: NL Appearance and Movements; NL JVP, Trachea Midline Respiratory: Symmetrical Chest Expansion and Respiratory Effort, Clear to Auscultation Cardiovascular: NL Sounds; No Murmurs; No JVD, RRR, No Edema Abdominal: NL Sounds; No Tenderness; No Distention, No Hepatosplenomegaly Extremities: No Edema, No Clubbing, Cyanosis Skin: No Rash or Ulcers, No Nodules or Sclerosis, - - surgical dressing CDI Neurological: Alert and Oriented x 3, NL Sensation, NL Muscle Strength and Tone Nutrition: Taking PO's Result Diagrams: 02/27/18 05:20 02/27/18 05:20 Assess/Plan/Problems-Billing Assessment: This is a 67 year old female with history of end-stage osteoarthritis of the left knee, POD1 LTKA. - Patient Problems (1) Status post left knee replacement Current Visit: Yes Status: Acute Code(s): Z96.652 - PRESENCE OF LEFT ARTIFICIAL KNEE JOINT SNOMED Code(s): 1235933581447 Comment: - POD1 - POC as per orthopedics - Pain control, bowel regimen, OOB with PT/OT - H&H and renal function adequate - Lovenox-coumadin bridge for DVT prophy (2) History of uterine cancer Code(s): Z85.42 - PERSONAL HISTORY OF MALIGNANT NEOPLASM OF OTH PRT UTERUS SNOMED Code(s): 240831120 Comment: - s/p hysterectomy in November - Stable, continue outpatient follow up as needed (3) ELDA (obstructive sleep apnea) Code(s): G47.33 - OBSTRUCTIVE SLEEP APNEA (ADULT) (PEDIATRIC) SNOMED Code(s): 02755417 Comment: - Utilizing CPAP from home (4) HTN (hypertension) Code(s): I10 - ESSENTIAL (PRIMARY) HYPERTENSION SNOMED Code(s): 03533543 Comment: - Stable on HCTZ (5) Hyperlipidemia Code(s): E78.5 - HYPERLIPIDEMIA, UNSPECIFIED SNOMED Code(s): 11511161 Comment: - continue statin Status and Disposition: Inpatient, stable. Dispo as per orthopedics. Will sign off, please reconsult as needed.
[2018-02-27] MEDS: Atorvastatin* 10 MG TAB PO SCH (16:53)
[2018-02-28] MEDS: oxyCODONE/Acetamin 5/325 MG* TAB PO PRN ×3 (00:13→11:09)
[2018-02-28] MEDS: oxyCODONE TAB* 5 MG TAB PO PRN ×2 (03:12→09:00)
[2018-02-28 05:31] LABS: Hematocrit 37 % (35-47); Hemoglobin 12.2 g/dl (12.0-16.0); Mean Platelet Volume 8.3 fL (7.4-10.4); Platelet Count 192 10^3/ul (150-450)
[2018-02-28 05:39] LABS: INR 1.06 (0.77-1.02)
[2018-02-28] MEDS: Acetaminophen TAB* 325 MG PO SCH (07:23)
[2018-02-28] MEDS: Docusate CAP* 100 MG PO SCH (08:59)
[2018-02-28] MEDS: Magnesium Hydroxide LIQ* 30 ML UDC PO SCH (08:59)
[2018-02-28] MEDS: Hydrochlorothiazide TAB* 25 MG PO SCH (09:00)
--- NOTE | 2018-02-28 09:44 | PN ---
Progress Note - Progress Note Date of Service: 02/28/18 SOAP: Subjective: []Patient was seen and examined at bedside. SHe feels well and desires DC to home. Denies CP, irregular heartbeats, SOB, dizziness, nausea. HR in the 90s at rest and low 100s with activity which she states is her baseline. No history of DVT or PE. Objective: []General: NAD, well appearing RLE: Knee dressing changed, incision CDI, thigh is soft, DF/PF intact, sensation intact distally, DP2+ Calves supple and nontender without erythema, edema or palpable cords Assessment: []POD [address] Mari 02/26/18 Plan: []WBAT PT/OT DVT prophylaxis: eliquis 2.5 mg po BID for 30 days. No longer requires coumadin or INR draws as she did not reach therapeutic INR before discharge. DC to home today Vital Signs Temp 98.5 F 02/28/18 07:11 Pulse 94 02/28/18 08:57 Resp 18 02/28/18 09:00 BP 141/66 02/28/18 07:11 Pulse Ox 93 02/28/18 07:11 Intake & Output 02/27/18 02/28/18 02/28/18 18:59 06:59 18:59 Intake Total 1990 830 150 Output Total 1000 2200 700 Balance 990 -1370 -550 Intake: IV Fluids 1100 ABX - CEFAZOLIN 110 LR 990 Oral 890 830 150 Output: Urine 1000 2200 700 Other: # Bowel Movements 0 Laboratory Last Values Hgb 12.2 g/dl (12.0-16.0) 02/28/18 05:17 Hct 37 % (35-47) 02/28/18 05:17 Plt Count 192 10^3/ul (150-450) 02/28/18 05:17 MPV 8.3 fL (7.4-10.4) 02/28/18 05:17 INR (Anticoag Therapy) 1.06 (0.77-1.02) H 02/28/18 05:17 Sodium 135 mmol/L (135-145) 02/28/18 05:17 Potassium 4.2 mmol/L (3.5-5.0) 02/27/18 05:20 Chloride 102 mmol/L (101-111) 02/27/18 05:20 Carbon Dioxide 26 mmol/L (22-32) 02/27/18 05:20 Anion Gap 5 mmol/L (2-11) 02/27/18 05:20 BUN 16 mg/dL (6-24) 02/27/18 05:20 Creatinine 0.68 mg/dL (0.51-0.95) 02/27/18 05:20 Est GFR ( Amer) 104.7 (>60) 02/27/18 05:20 Est GFR (Non-Af Amer) 86.6 (>60) 02/27/18 05:20 BUN/Creatinine Ratio 23.5 (8-20) H 02/27/18 05:20 Glucose 124 mg/dL (70-100) H 02/27/18 05:20 Calcium 8.4 mg/dL (8.6-10.3) L 02/27/18 05:20
[2018-02-28] MEDS: Enoxaparin(*) 40 MG/0.4 ML SYR SUBCUT SCH (11:10)
[2018-02-28 12:00] VITALS: BP 143/82
[~2018-02-28 14:00] MED LIST: Acetaminophen IV 1GM/100ML * 100 ML ONE; Bisacodyl SUPP* 10 MG SUPP PR PRN; Buffered Lidocaine 0.9% SYRIN* 5 ML/SYR SYRINGE INTRADERM ONE; Bupivacaine 0.5%* 50 ML VIAL ONE; Cyclobenzaprine TAB* 10 MG PO PRN; DiMENhydriNATE IV* 50 MG/ML VIAL IV PUSH PRN; Glycopyrrolate IV* 0.2 MG/ML 1 ML VIAL ONE; HYDROmorphone INJ1* 1 MG/ML SYRINGE ONE; KETAMINE HCL* 50 MG/ML 10 ML VIAL ONE; Ketorolac INJ* 30 MG/ML 1 ML VIAL ONE; Lactated Ringers 1000 ML Bag* 1,000 ML IV SCH; Lidocaine 2% PF * 5 ML VIAL ONE; Magnesium Hydroxide LIQ* 30 ML UDC PO PRN; Metoclopramide IV* 5 MG/ML 2 ML VIAL ONE; Midazolam* 1 MG/ML 2 ML VIAL (2 MG) ONE; Morphine VIAL* 4 MG/ML VIAL (1 ml vial) IV PRN; Naloxone* 0.4 MG/ML 1 ML VIAL IV PRN; Neostigmine Methylsulfate* 1 MG/ML 10 ML VIAL (1 mg/ml) ONE; Ondansetron INJ* 2 MG/ML VIAL IV PRN; Ondansetron INJ* 2 MG/ML VIAL ONE; Ondansetron TAB* 4 MG PO PRN; Pneumococcal *Vac Polyvalent 0.5 ML VIAL IM ONE; Polyethylene Glycol 3350* 17 GM PACKET PO PRN; Propofol* 10 MG/ML 20 ML BTL ONE; Propofol* 200 ML ONE; Remifentanil* 2 MG VIAL ONE; Rocuronium* 10 MG/ML VIAL ONE; Scopolamine 1.5 mg* PATCH TRANSDERM PRN; Succinylcholine* 20 MG/ML 10 ML VIAL ONE; Tranexamic Acid 1,000 MG in NS 0.9% 50 ML* (outpatient use) IV SCH; Warfarin TAB(*) 4 MG PO ONE; Warfarin TAB(*) 6 MG PO ONE; ceFAZolin 1 GM ADVAN(*) 1 GM ADDV.VIAL IVPB ONE; ceFAZolin 2 GM PREMIX in ORs 2 GM/50 ML BAG IVPB ONE; diPHENhydraMINE IV* 50 MG/ML 1 ml VIAL (BENADRYL) IV PRN; fentaNYL* 50 MCG/ML 2 ML VIAL (100 MCG VIAL) ONE; hydrALAZINE IV* 20 MG/ML VIAL ONE; oxyCODONE TAB* 5 MG TAB PO PRN; oxyCODONE/Acetamin 5/325 MG* TAB PO PRN; traMADol TAB* 50 MG PO PRN
--- NOTE | 2018-02-28 18:33 | DS ---
DISCHARGE SUMMARY: DATE OF ADMISSION: 02/26/18 DATE OF DISCHARGE: 02/28/18 ATTENDING ORTHOPEDIC PROVIDER: Dr. Mylene Mari.* (DICTATED BY HÉCTOR PEREZ) PREOPERATIVE DIAGNOSIS: Severe end-stage degenerative osteoarthritis of the right knee joint. OPERATIVE PROCEDURE: Right total knee arthroplasty. HISTORY: Ms. Villalobos is a 67-year-old female with years of increasingly severe right knee pain. Due to continued pain and decreased quality of life, she elected to undergo right total knee arthroplasty after failing conservative treatment with anti-inflammatories, pain medications, physical therapy, and intra-articular injections. HOSPITAL COURSE: The patient was admitted to [facility] on . She underwent a right total knee arthroplasty without complication. She recovered briefly in the PACU and was transferred to the short-stay surgical unit on postop day 1. She is well appearing, in no acute distress. The dressing was clean, dry, and intact. She was neurovascularly intact distally. She was also seen by hospitalist service during her stay with no change in her home medications. Postop day 2, she was well appearing, in no acute distress. Knee dressing was changed. Incision was clean, dry, and intact. Thigh was soft. Dorsiflexion, plantarflexion intact. Sensation intact distally. DP pulse 2+. PHYSICAL EXAMINATION: Vital Signs: Temperature 98.5, pulse 94, respiratory rate 18, blood pressure 141/66, pulse ox 93. LABORATORY STUDIES: Hemoglobin 12.2, hematocrit 37, INR 1.06. Prior to discharge, pulse rate was 92 and oxygen saturation was 100% on room air. The patient was deemed to be medically and orthopedically stable for discharge home. DISCHARGE MEDICATIONS: Include: 1. Hydrochlorothiazide 12.5 mg p.o. q.a.m. 2. Please discontinue Celebrex as well as tramadol. 3. Continue simvastatin 20 mg p.o. daily. 4. Calcium 500 plus vitamin D 1 cap each day. 5. Acetaminophen 975 mg p.o. q.8 hours p.r.n., not to exceed 4000 mg from all sources in a day. 6. Eliquis 2.5 mg p.o. q.12 hours for 30 days. 7. Docusate can be taken 100 mg p.o. b.i.d. as needed. 8. Percocet 5/325 1 to 2 tabs every 4 to 6 hours as needed for pain, max daily dose of 10. DISCHARGE INSTRUCTIONS: This patient will be discharged to home. She is weightbearing as tolerated. Okay to shower postop day 3. DVT prophylaxis with Eliquis 2.5 mg every 12 hours for 30 days postop. Pain control with Percocet 5/ 325 one to two tabs every 4 to 6 hours as needed for pain, max daily dose of 10. Follow up with Dr. Mari in 10 to 14 days. HÉCTOR PEREZ [id number]/[facility] #: [id number] MTDD
== END | disposition home health service (06) | DRG 470 ==
LOC: AA 02-26 09:47 → SSU 02-26 17:04 → UNDODISIN 13:00
PROVIDERS: ADMIT Orthopaedic Surgery Adult Reconstructive Orthopaedic Surgery; ATTEND Orthopaedic Surgery Adult Reconstructive Orthopaedic Surgery
PROC: 0SRC069 Replacement of Right Knee Joint with Oxidized Zirconium on Polyethylene Synthetic Substitute, Cemented, Open Approach (ICD-10-PCS; principal; 2018-02-26 12:00)
DX: M17.11 Unilateral primary osteoarthritis, right knee (principal); I10 Essential (primary) hypertension; K21.9 Gastro-esophageal reflux disease without esophagitis; Z80.3 Family history of malignant neoplasm of breast; E66.9 Obesity, unspecified; G47.33 Obstructive sleep apnea (adult) (pediatric); M25.461 Effusion, right knee; D51.9 Vitamin B12 deficiency anemia, unspecified; E78.5 Hyperlipidemia, unspecified; M25.761 Osteophyte, right knee; Z91.013 Allergy to seafood; Z23 Encounter for immunization; Z68.43 Body mass index [BMI] 50.0-59.9, adult; Z85.42 Personal history of malignant neoplasm of other parts of uterus; Z90.89 Acquired absence of other organs; Z90.710 Acquired absence of both cervix and uterus; Z88.8 Allergy status to other drugs, medicaments and biological substances; Z82.49 Family history of ischemic heart disease and other diseases of the circulatory system
CPT/HCPCS: 36415; 80048; 84300; 85014; 85018; 85049; 85610; 88305; 88311; 90732; A9270-GY; G8978-GP-CJ; G8979-GP-CI; G8987-GO-CJ; G8988-GO-CJ; G8989-GO-CJ; J0330; J0360; J0690; J1170; J1650; J1885; J2250; J2405; J2704; J2710; J2765; J3010

== ENCOUNTER → 2018-04-04 05:39 | Day surgery (SDC) | payer MEDICARE, OTHER ==
--- NOTE | 2018-04-02 15:07 | HP ---
HISTORY AND PHYSICAL: DATE OF ADMISSION/SURGERY: 04/04/18 DATE OF OFFICE VISIT: 04/01/18 SURGEON: Mylene Mari MD * (DICTATED BY HÉCTOR DOMÍNGUEZ) PROCEDURE: Manipulation under anesthesia, right total knee arthroplasty. CHIEF COMPLAINT: Right knee stiffness. HISTORY OF PRESENT ILLNESS: Mrs. Villalobos is a 67-year-old female who underwent a right total knee arthroplasty on 02/26/18. It has been 5-1/2 weeks since the surgery. She continues to have stiffness of her right knee and has elected to proceed with a manipulation under anesthesia. PAST MEDICAL HISTORY: Hypertension, sleep apnea, high cholesterol, and history of uterine cancer. PAST SURGICAL HISTORY: Right total knee arthroplasty, hysterectomy, bilateral carpal tunnel release, trigger finger release, and appendectomy. CURRENT MEDICATIONS: 1. Hydrochlorothiazide 12.5 mg daily. 2. Percocet 5/325 three times a day. 3. Calcium with vitamin D and Vytorin 10/20 mg daily. ALLERGIES: BETADINE and SHELLFISH. FAMILY HISTORY: Coronary artery disease and breast cancer. SOCIAL HISTORY: She is a 67-year-old female. She lives with her son. She does not smoke or use drugs. REVIEW OF SYSTEMS: A complete 14-point review of systems was reviewed with the patient. She reports a history of waking up violently after anesthesia. She denies history of DVT, PE, hepatitis, HIV, or anesthesia problems. PHYSICAL EXAMINATION GENERAL: She is well developed, well nourished, in no acute distress. VITAL SIGNS: She stands 63 inches tall, weighs 273 pounds. Her blood pressure is 138/78 and heart rate is 107. HEENT: Normocephalic, atraumatic. NECK: Supple. No palpable lymph nodes. PULMONARY: The lungs are clear to auscultation bilaterally. CARDIO: Regular rate and rhythm. Strong S1, S2. ABDOMEN: Soft, nontender, nondistended. NEUROLOGICAL: She is alert and oriented x3. MUSCULOSKELETAL: Right lower extremity: The skin is intact. There are no open wounds or abrasions. There remains a moderate joint effusion, range of motion is 0 to about 70 degrees. Her calf is soft and nontender. She is able to dorsiflex and plantarflex. She has a 2+ dorsalis pedis pulse and she is ambulating well. ASSESSMENT AND PLAN: Mrs. Villalobos is a 67-year-old female with stiffness following a right total knee arthroplasty. She is elected to proceed with a manipulation under anesthesia of her right total knee scheduled for 04/04/[address] Mari discussed the risks and benefits of the surgery at today's visit and all of her questions were answered. HÉCTOR DOMÍNGUEZ [id number]/[facility] #: [id number] [facility]
[~2018-04-04 05:39] MED LIST changes: -Acetaminophen IV 1GM/100ML * 100 ML ONE; -Bisacodyl SUPP* 10 MG SUPP PR PRN; -Buffered Lidocaine 0.9% SYRIN* 5 ML/SYR SYRINGE INTRADERM ONE; +Buffered Lidocaine 1% SYRIN* 1 ML/SYRINGE INTRADERM ONE; -Bupivacaine 0.5%* 50 ML VIAL ONE; -Cyclobenzaprine TAB* 10 MG PO PRN; +Dexamethasone IV* 4 MG/ML 1 ML (4 MG) ONE; -DiMENhydriNATE IV* 50 MG/ML VIAL IV PUSH PRN; +Famotidine IV* 10 MG/ML 2 ML (20 mg) IV ONE; +Famotidine IV* 10 MG/ML 2 ML (20 mg) ONE; -Glycopyrrolate IV* 0.2 MG/ML 1 ML VIAL ONE; -HYDROmorphone INJ1* 1 MG/ML SYRINGE ONE; -KETAMINE HCL* 50 MG/ML 10 ML VIAL ONE; -Magnesium Hydroxide LIQ* 30 ML UDC PO PRN; -Metoclopramide IV* 5 MG/ML 2 ML VIAL ONE; -Midazolam* 1 MG/ML 2 ML VIAL (2 MG) ONE; +Midazolam* 1 MG/ML 5 ML VIAL (5 MG) ONE; -Morphine VIAL* 4 MG/ML VIAL (1 ml vial) IV PRN; -Neostigmine Methylsulfate* 1 MG/ML 10 ML VIAL (1 mg/ml) ONE; -Ondansetron INJ* 2 MG/ML VIAL IV PRN; -Ondansetron TAB* 4 MG PO PRN; -Pneumococcal *Vac Polyvalent 0.5 ML VIAL IM ONE; -Polyethylene Glycol 3350* 17 GM PACKET PO PRN; -Propofol* 200 ML ONE; -Remifentanil* 2 MG VIAL ONE; -Rocuronium* 10 MG/ML VIAL ONE; -Scopolamine 1.5 mg* PATCH TRANSDERM PRN; -Tranexamic Acid 1,000 MG in NS 0.9% 50 ML* (outpatient use) IV SCH; -Warfarin TAB(*) 4 MG PO ONE; -Warfarin TAB(*) 6 MG PO ONE; -ceFAZolin 1 GM ADVAN(*) 1 GM ADDV.VIAL IVPB ONE; -ceFAZolin 2 GM PREMIX in ORs 2 GM/50 ML BAG IVPB ONE; -diPHENhydraMINE IV* 50 MG/ML 1 ml VIAL (BENADRYL) IV PRN; +fentaNYL* 50 MCG/ML 2 ML VIAL (100 MCG VIAL) IV PRN; -hydrALAZINE IV* 20 MG/ML VIAL ONE; -oxyCODONE TAB* 5 MG TAB PO PRN; -oxyCODONE/Acetamin 5/325 MG* TAB PO PRN; -traMADol TAB* 50 MG PO PRN
[2018-04-04 08:48] VITALS: BP 149/92
--- NOTE | 2018-04-04 20:49 | OP ---
DATE OF OPERATION: 04/04/18 - [facility] DATE OF : 52 SURGEON: Mylene Mari MD SUPERVISOR TYPESETTING: None. ANESTHESIOLOGIST: Dr. Del Valle. ANESTHESIA: low MAC. PRE-OP DIAGNOSIS: Right total knee arthroplasty with pain and arthrofibrosis. 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 OPERATIVE PROCEDURE: Right total knee arthroplasty, manipulation under anesthesia. COMPLICATIONS: None. ESTIMATED BLOOD LOSS: None. BRIEF HISTORY/INDICATION: Ms. Villalobos is a 67-year-old female who had right total knee arthroplasty approximately 6 weeks ago. She has had difficulty with postoperative pain and physical therapy. She has only reached 70% degrees of flexion of the knee. We discussed her options and she wished to proceed with a manipulation under anesthesia of the right total knee arthroplasty. Informed consent was obtained from the patient. She understood the risks of surgery included but were not limited to bleeding, infection, damage to nearby structures, periprosthetic fracture, continued knee stiffness, need for further manipulation, anesthetic complications, stroke, heart attack, blood clot and . She wished to proceed. INTRAOPERATIVE FINDINGS: Intraoperatively, the patient was noted to have preop range of motion, 0 to 70 degrees of flexion. After the manipulation, she had 0 to 110 degrees of flexion. Flexion was limited only by her morbid obese body habitus. DESCRIPTION OF PROCEDURE: Ms. Villalobos was identified in the preanesthesia unit. Her right lower extremity was marked as a correct operative site. Informed consent was signed and placed in the chart. The patient was taken to the operating room and placed under anesthesia. Preop time-out was made to correctly identify the patient's side and site. The knee was gently flexed and extended. Audible breakup of adhesions and scar tissue was noted. The knee initially flexed to 70 degrees. After several gentle flexing of the knee, the knee easily flexed to 110 degrees. At this time, AP and lateral C-arm views were obtained to ensure no periprosthetic fracture. There was no visible preprosthetic fracture. The patient's anesthesia was reversed and she was taken to PACU in stable condition. Intended weightbearing will be weightbearing as tolerated. She will follow up in 2 weeks' time for a recheck. She has physical therapy scheduled for 04/05/18. [id number]/[facility] #: [id number] [facility]
== END | disposition home or self-care (01) ==
LOC: OR 05:39
PROVIDERS: ATTEND Orthopaedic Surgery Adult Reconstructive Orthopaedic Surgery
DX: M24.661 Ankylosis, right knee (principal); M25.561 Pain in right knee; M25.461 Effusion, right knee; Z96.651 Presence of right artificial knee joint; Z47.1 Aftercare following joint replacement surgery; I10 Essential (primary) hypertension; E78.00 Pure hypercholesterolemia, unspecified; Z85.42 Personal history of malignant neoplasm of other parts of uterus; Z79.899 Other long term (current) drug therapy
CPT/HCPCS: 76000; J0330; J1100; J1885; J2250; J2405; J2704; J3010

== ENCOUNTER 2018-12-25 08:14 | Day surgery (SDC) | payer MEDICARE, OTHER ==
[~2018-12-25 08:14] MED LIST changes: -Dexamethasone IV* 4 MG/ML 1 ML (4 MG) ONE; -Famotidine IV* 10 MG/ML 2 ML (20 mg) IV ONE; -Famotidine IV* 10 MG/ML 2 ML (20 mg) ONE; -Ketorolac INJ* 30 MG/ML 1 ML VIAL ONE; -Lactated Ringers 1000 ML Bag* 1,000 ML IV SCH; -Lidocaine 2% PF * 5 ML VIAL ONE; -Midazolam* 1 MG/ML 5 ML VIAL (5 MG) ONE; -Naloxone* 0.4 MG/ML 1 ML VIAL IV PRN; -Ondansetron INJ* 2 MG/ML VIAL ONE; -Propofol* 10 MG/ML 20 ML BTL ONE; -Succinylcholine* 20 MG/ML 10 ML VIAL ONE; -fentaNYL* 50 MCG/ML 2 ML VIAL (100 MCG VIAL) IV PRN; -fentaNYL* 50 MCG/ML 2 ML VIAL (100 MCG VIAL) ONE
[2018-12-25] MEDS ORDERED: Midazolam* 1 MG/ML 2 ML VIAL (2 MG) ONE (10:20)
[2018-12-25 11:38] VITALS: BP 154/80
--- NOTE | 2018-12-25 12:40 | OP ---
DATE OF OPERATION: 12/25/18 [facility] DATE OF : 52 SURGEON: Reggie Chatman MD PREOPERATIVE DIAGNOSIS: Cataract, right eye. POSTOPERATIVE DIAGNOSIS: Cataract, right eye. OPERATIVE PROCEDURE: Extracapsular cataract extraction with intraocular lens implant, right eye. DESCRIPTION OF PROCEDURE: The patient was brought to the operating room after being given 1/2% Alcaine with epinephrine drops in the preoperative area. The eye was prepped and draped in the usual sterile fashion. Sterile drape and eyelid speculum were placed. Again, topical 1/2% Alcaine with epinephrine was given. A paracentesis incision was made at the 9 o'clock position with the No.75 blade. Clear cornea incision 2.2 x 2.2-mm was created at the 12 o'clock position starting at the anterior limbus using the 2.2-mm keratome. The anterior chamber was irrigated with 0.4 mL of 1% non-preservative intracameral lidocaine and filled with DisCoVisc. A capsulorrhexis was completed using the cystotome and the Utrata forceps. Hydrodissection was performed with balanced salt solution. The lens nucleus was removed with the Phacoemulsification handpiece without incident. Cortex was removed with the irrigation-aspiration handpiece. The capsular bag was re-inflated using DisCoVisc and [id number] implant was inserted with the shooter. The irrigation-aspiration handpiece was used to remove all residual DisCoVisc. The eye was refilled with balanced salt solution and the wound checked and found to be watertight. Topical Maxitrol drops were given. [id number]/[facility] #: [id number] [facility]
[2018-12-25] MEDS ORDERED: Povidone Iodine 5% OPTH* 30 ML BTL ONE (13:45)
[2018-12-25] MEDS ORDERED: Lidocaine 2% w/ EPI 1:200,000* 20 ML SDV VIAL ONE (13:45)
[2018-12-25] MEDS ORDERED: Phenylephrine OPHTH SOL 2.5%* 2 ML ONE (13:45)
[2018-12-25] MEDS ORDERED: Proparacaine 0.5% OPHTH.SOL* 15 ML BTL ONE (13:45)
[2018-12-25] MEDS ORDERED: Ketorolac 0.5% OPHTH (NF) 0.5 % 5 ML BTL ONE (13:45)
[2018-12-25] MEDS ORDERED: acetaZOLAMIDE TAB* 250 MG ONE (13:45)
[2018-12-25] MEDS ORDERED: Cyclopentolate 1% OPTH.SOL* 2 ML BTL ONE (13:45)
[2018-12-25] MEDS ORDERED: Neomycin/Polymy/Dex OPTH.SUSP* MAXITROL 0.1% 5 ML ONE (13:45)
[2018-12-25] MEDS ORDERED: Lidocaine 1% MPF ** 5 ML VIAL ONE (13:45)
== END 2018-12-25 11:16 | disposition home or self-care (01) ==
LOC: OREAST 08:14
PROVIDERS: ATTEND Specialist
DX: H25.811 Combined forms of age-related cataract, right eye (principal); H00.015 Hordeolum externum left lower eyelid; I10 Essential (primary) hypertension; G47.33 Obstructive sleep apnea (adult) (pediatric); M19.90 Unspecified osteoarthritis, unspecified site; K21.9 Gastro-esophageal reflux disease without esophagitis; E66.01 Morbid (severe) obesity due to excess calories; E78.5 Hyperlipidemia, unspecified; E55.9 Vitamin D deficiency, unspecified; J45.909 Unspecified asthma, uncomplicated
CPT/HCPCS: A9270-GY; J2250; V2632

== ENCOUNTER 2019-01-01 11:17 | Day surgery (SDC) | payer MEDICARE, OTHER ==
[2019-01-01] MEDS ORDERED: fentaNYL* 50 MCG/ML 2 ML VIAL (100 MCG VIAL) ONE (12:56)
[2019-01-01] MEDS ORDERED: Midazolam* 1 MG/ML 2 ML VIAL (2 MG) ONE (12:57)
[2019-01-01] MEDS ORDERED: Ketorolac 0.5% OPHTH (NF) 0.5 % 5 ML BTL ONE (13:14)
[2019-01-01] MEDS ORDERED: Neomycin/Polymy/Dex OPTH.SUSP* MAXITROL 0.1% 5 ML ONE (13:14)
[2019-01-01] MEDS ORDERED: Lidocaine 2% w/ EPI 1:200,000* 20 ML SDV VIAL ONE (13:14)
[2019-01-01] MEDS ORDERED: Proparacaine 0.5% OPHTH.SOL* 15 ML BTL ONE (13:14)
[2019-01-01] MEDS ORDERED: Cyclopentolate 1% OPTH.SOL* 2 ML BTL ONE (13:14)
[2019-01-01] MEDS ORDERED: Phenylephrine OPHTH SOL 2.5%* 2 ML ONE (13:14)
[2019-01-01] MEDS ORDERED: Lidocaine 1% MPF ** 5 ML VIAL ONE (13:14)
[2019-01-01] MEDS ORDERED: acetaZOLAMIDE TAB* 250 MG ONE (13:14)
[2019-01-01] MEDS ORDERED: Povidone Iodine 5% OPTH* 30 ML BTL ONE (13:14)
[2019-01-01 14:07] VITALS: BP 136/83
--- NOTE | 2019-01-01 14:25 | OP ---
OPERATIVE NOTE: DATE OF OPERATION: 01/01/19 DATE OF : 52 SURGEON: Reggie Chatman M.D. PREOPERATIVE DIAGNOSIS: Cataract, left eye. POSTOPERATIVE DIAGNOSIS: Cataract, left eye. OPERATIVE PROCEDURE: Extracapsular cataract extraction with intraocular lens implant, left eye. PROCEDURE: The patient was brought to the operating room after being given 1/2% Alcaine with epineph rine drops in the preoperative area. The eye was prepped and draped in the usual sterile fashion. S terile drape and eyelid speculum were placed. Again, topical 1/2% Alcaine with epinephrine was given . A paracentesis incision was made at the 3 o'clock position with the No.75 blade. Clear cornea inc ision 2.2 x 2.2-mm was created at the 6 o'clock position starting at the anterior limbus using the 2. 2-mm keratome. The anterior chamber was irrigated with 0.4 mL of 1% non-preservative intracameral li docaine and filled with DisCoVisc. A capsulorrhexis was completed using the cystotome and the Utrata forceps. Hydrodissection was performed with balanced salt solution. The lens nucleus was removed wi th the Phacoemulsification handpiece without incident. Cortex was removed with the irrigation-aspira tion handpiece. The capsular bag was re-inflated using DisCoVisc and an [id number] 20 implant was insert ed with the shooter. The irrigation-aspiration handpiece was used to remove all residual DisCoVisc. The eye was refilled with balanced salt solution and the wound checked and found to be watertight. Topical Maxitrol drops were given. [id number]/[facility] #: [id number]
== END 2019-01-01 14:30 | disposition home or self-care (01) ==
LOC: OREAST 11:17
PROVIDERS: ATTEND Specialist
DX: H25.812 Combined forms of age-related cataract, left eye (principal); H10.45 Other chronic allergic conjunctivitis; H25.13 Age-related nuclear cataract, bilateral; H00.015 Hordeolum externum left lower eyelid; K21.9 Gastro-esophageal reflux disease without esophagitis; I10 Essential (primary) hypertension; Z96.1 Presence of intraocular lens; Z79.899 Other long term (current) drug therapy
CPT/HCPCS: A9270-GY; J2250; J3010; V2632

== ENCOUNTER 2019-01-23 06:09 | Observation (INO) | payer MEDICARE, OTHER ==
--- NOTE | 2019-01-10 14:02 | HP ---
HISTORY AND PHYSICAL: DATE OF ADMISSION/SURGERY: 01/23/19 DATE OF OFFICE VISIT: 01/10/19 SURGEON: Mylene Mari MD * (DICTATED BY HÉCTOR DOMÍNGUEZ) PROCEDURE: Left total knee arthroplasty. CHIEF COMPLAINT: Left knee pain. HISTORY OF PRESENT ILLNESS: Ms. Villalobos is a 68-year-old female with continued complaints of left knee pain. She has failed conservative treatment and elected to proceed with a left total knee arthroplasty. PAST MEDICAL HISTORY: High cholesterol and ELDA. PAST SURGICAL HISTORY: Hysterectomy, right total knee arthroplasty, bilateral carpal tunnel release, and appendectomy. CURRENT MEDICATIONS: 1. Calcium with vitamin D. 2. Celebrex 200 mg twice a day. 3. Hydrochlorothiazide 12.5 mg a day. 4. Vitamin B12. 5. Vitamin D. 6. Simvastatin. ALLERGIES: BETADINE and SHELLFISH. FAMILY HISTORY: Cancer. SOCIAL HISTORY: She is a 68-year-old female. She lives with her son. She does not smoke or use drugs or alcohol. REVIEW OF SYSTEMS: A complete 14-point review of systems was reviewed with the patient. She does report reacting violently when waking up from anesthesia, otherwise it was negative. Denies history of DVT, PE, hepatitis, or HIV. PHYSICAL EXAMINATION GENERAL: She is well developed, well nourished, in no acute distress. VITAL SIGNS: She is 62-1/2 inches tall, 277 pounds. Blood pressure is 122/84, heart rate is 98. HEENT: Normocephalic, atraumatic. NECK: Supple. No palpable lymph nodes. PULMONARY: Lungs are clear to auscultation bilaterally. CARDIO: Regular rate and rhythm. Strong S1 and S2. ABDOMEN: Soft, nontender, nondistended. NEUROLOGICAL: She is alert and oriented x3. MUSCULOSKELETAL: Left lower extremity: The skin is intact. There are no open wounds or abrasions. There is a moderate effusion of the left knee joint. Tenderness over the medial and lateral joint line. Range of motion is 15 to 110 degrees of flexion. She is able to dorsiflex and plantarflex. She has a 2 + dorsalis pedis pulse and intact sensation. ASSESSMENT AND PLAN: Ms. Villalobos is a 68-year-old female with end-stage osteoarthritis of the left knee. She has failed conservative treatment and elected to proceed with a left total knee arthroplasty. The surgery is scheduled for 01/23/[address] Mari discussed the risks and benefits of the surgery at today's visit and all of her questions were answered. She will follow up with Dr. Mari 2 weeks after the surgery. HÉCTOR DOMÍNGUEZ [id number]/[facility] #: [id number] [place]
[~2019-01-23 06:09] MED LIST changes: +Dexamethasone IV* 4 MG/ML 1 ML (4 MG) IV SLOW PU ONE; +Famotidine IV* 10 MG/ML 2 ML (20 mg) IV ONE; +Gabapentin CAP(*) 300 MG PO ONE; +Lactated Ringers 1000 ML Bag* 1,000 ML IV SCH; +celeCOXIB CAP* 200 MG PO ONE
[2019-01-23] MEDS ORDERED: ceFAZolin 1 GM ADVAN(*) 1 GM ADDV.VIAL IVPB ONE (06:44)
[2019-01-23] MEDS ORDERED: Dexamethasone TAB* 4 MG ONE (06:44)
[2019-01-23] MEDS ORDERED: celeCOXIB CAP* 200 MG ONE ×2 (06:44→07:21)
[2019-01-23] MEDS ORDERED: Gabapentin CAP(*) 300 MG ONE ×2 (06:44→07:21)
[2019-01-23] MEDS ORDERED: Famotidine IV* 10 MG/ML 2 ML (20 mg) ONE ×2 (06:45→07:22)
[2019-01-23] MEDS ORDERED: Buffered Lidocaine 1% SYRIN* 1 ML/SYRINGE INTRADERM ONE ×2 (06:45→07:22)
[2019-01-23] MEDS ORDERED: ceFAZolin 2 GM in NS PREMIX(*) 2 GM/100 ML BAG IVPB ONE (06:45)
[2019-01-23] MEDS ORDERED: Tranexamic Acid 1,000 MG in NS 0.9% 50 ML IV ONE (07:00)
[2019-01-23] MEDS ORDERED: fentaNYL* 50 MCG/ML 2 ML VIAL (100 MCG VIAL) ONE ×3 (07:02→12:16)
[2019-01-23] MEDS ORDERED: Midazolam* 1 MG/ML 5 ML VIAL (5 MG) ONE (07:02)
[2019-01-23] MEDS ORDERED: Propofol* 10 MG/ML 20 ML BTL ONE (07:03)
[2019-01-23] MEDS ORDERED: Lidocaine 2% PF * 5 ML VIAL ONE (07:03)
[2019-01-23] MEDS ORDERED: Dexamethasone IV* 4 MG/ML 1 ML (4 MG) ONE (07:21)
[2019-01-23] MEDS ORDERED: ROPIVACAINE 5 MG/ML 30 ML BTL (0.5%) ONE ×2 (07:25→07:59)
[2019-01-23] MEDS ORDERED: Succinylcholine* 20 MG/ML 10 ML VIAL ONE (08:02)
[2019-01-23] MEDS ORDERED: KETAMINE HCL* 50 MG/ML 10 ML VIAL ONE (08:14)
[2019-01-23] MEDS ORDERED: Phenylephrine 40 MCG/ML SYRINGE ONE (08:18)
[2019-01-23] MEDS ORDERED: EPHEDrine (Pressors)* 50 MG/ML VIAL ONE (08:37)
[2019-01-23] MEDS ORDERED: Morphine 4 MG/ML VIAL (1 ml) 4 MG/ML VIAL IV PRN (09:01)
[2019-01-23] MEDS ORDERED: DiMENhydriNATE IV* 50 MG/ML VIAL IV PUSH PRN (09:01)
[2019-01-23] MEDS ORDERED: oxyCODONE TAB* 5 MG TAB PO PRN ×2 (09:01→10:53)
[2019-01-23] MEDS ORDERED: Naloxone* 0.4 MG/ML 1 ML VIAL IV PRN (09:01)
[2019-01-23] MEDS ORDERED: fentaNYL* 50 MCG/ML 2 ML VIAL (100 MCG VIAL) IV PRN (09:01)
[2019-01-23] MEDS ORDERED: Scopolamine 1.5 mg* PATCH TRANSDERM PRN (09:01)
[2019-01-23] MEDS ORDERED: Morphine 10 MG/ML VIAL (1 ml) ONE (09:17)
[2019-01-23] MEDS ORDERED: Acetaminophen IV 1GM/100ML * 100 ML ONE (09:47)
[2019-01-23] MEDS ORDERED: Ondansetron INJ* 2 MG/ML VIAL ONE (09:54)
[2019-01-23] MEDS ORDERED: Polyethylene Glycol 3350* 17 GM PACKET PO PRN (10:53)
[2019-01-23] MEDS ORDERED: Ondansetron INJ* 2 MG/ML VIAL IV PRN (10:53)
[2019-01-23] MEDS ORDERED: oxyCODONE/Acetamin 5/325 MG* TAB PO PRN (10:53)
[2019-01-23] MEDS ORDERED: Cyclobenzaprine TAB* 10 MG PO PRN (10:53)
[2019-01-23] MEDS ORDERED: Magnesium Hydroxide LIQ* 30 ML UDC PO PRN (10:53)
[2019-01-23] MEDS ORDERED: Morphine INJ* 2 MG/ML 1 ML SYRINGE (TWO MG - NEW SYRINGE VERSION) IV PRN (10:53)
[2019-01-23] MEDS ORDERED: Ondansetron ODT TAB* 4 MG PO PRN (10:53)
[2019-01-23] MEDS ORDERED: diPHENhydraMINE IV* 50 MG/ML 1 ml VIAL (BENADRYL) IV PRN (10:53)
[2019-01-23] MEDS ORDERED: traMADol TAB* 50 MG PO PRN (10:53)
[2019-01-23] MEDS ORDERED: diPHENhydraMINE PO* 25 MG PO PRN (10:53)
[2019-01-23] MEDS ORDERED: Temazepam CAP* 15 MG PO PRN (10:53)
[2019-01-23] MEDS ORDERED: oxyCODONE TAB* 5 MG TAB ONE (12:16)
--- NOTE | 2019-01-23 13:34 | CONS ---
CONSULTATION REPORT: DATE OF CONSULT: 01/23/19 CONSULTING PHYSICIAN: Dr. Mylene Mari REASON FOR CONSULT: Co-management of chronic medical conditions. HISTORY OF PRESENT ILLNESS: Sarah Villalobos is a 68-year-old white female with past medical history significant for ELDA, on CPAP; hyperlipidemia; hypertension ; vitamin B12 deficiency; anemia; endometrial cancer, status post hysterectomy and bilateral knee osteoarthritis, who presented for elective left total knee arthroplasty with Dr. Mari today. The patient failed outpatient medical conservative therapy and opted for electrosurgery today. The patient is evaluated in the postanesthesia care unit after surgery. She is asleep, awakens easily to voice. She started to feel small amount of pain in her left lower extremity, but is overall controlled and sitting comfortably. She denies abdominal pain, nausea, vomiting, chest pain, difficulty breathing and overall feels comfortable. She has had no issues in the PACU and is wearing her CPAP while she is asleep. PAST MEDICAL HISTORY: 1. ELDA, on CPAP. 2. Hyperlipidemia. 3. Hypertension. 4. Osteoarthritis. 5. Vitamin B12 deficiency anemia. 6. Endometrial cancer, status post hysterectomy. PAST SURGICAL HISTORY: 1. Carpal tunnel release. 2. Trigger finger surgery. 3. Appendectomy. 4. Total hysterectomy. 5. Right total knee arthroplasty. 6. Bilateral cataract surgery. HOME MEDICATIONS: 1. Hydrochlorothiazide 12.5 mg p.o. daily. 2. Simvastatin 20 mg p.o. daily. 3. Nystatin cream 1 application topically b.i.d. p.r.n. rash. 4. Epinephrine 1% injection daily p.r.n. anaphylaxis. 5. Vitamin B12 1000 mcg p.o. daily. 6. Vitamin D 2000 units p.o. daily. 7. Calcium carbonate/vitamin D 1 tab p.o. daily. 8. Tylenol 1000 mg p.o. b.i.d. p.r.n. ALLERGIES: BISACODYL, reaction of nausea and vomiting; MIRALAX, reaction of nausea and vomiting; POTASSIUM CHLORIDE, reaction of nausea and vomiting; difficulty swallowing, reaction to SHELLFISH; SODIUM BICARB, reaction of nausea and vomiting; reaction of nausea and vomiting to GAVILYTE-H with BISACODYL; reaction of swelling and rash to BETADINE. FAMILY HISTORY: The patient denies family history of coronary artery disease or CVA. SOCIAL HISTORY: The patient denies tobacco use and is never smoker. Denies illicit drug use. Denies alcohol use. She lives with her son. PHYSICAL EXAM: General: Obese white female, who is lying in hospital bed, appearing comfortable, in no acute distress. Eyes: PERRL. Sclerae anicteric. ENT: Mucous membranes moist. Neck: Supple. Lungs: Clear to auscultation. Cardio: Regular rate and rhythm without murmurs, rubs, or gallops. Abdomen: Normoactive bowel sounds x4 quadrants. Abdomen is soft, nontender, nondistended without appreciable hepatosplenomegaly. Extremities: No clubbing , cyanosis, or edema. Neuro: The patient is able to move all extremities. Sensation to light touch in bilateral lower extremities. The patient is alert and oriented x3. She was sleep initially but alerted easily voice. Skin: Warm, dry and intact. ASSESSMENT AND PLAN: Sarah Villalobos is a 68-year-old white female with past medical history significant for hyperlipidemia, hypertension, obstructive sleep apnea, and vitamin B12 deficiency anemia, who presented for elective left total knee arthroplasty with Dr. Mari today. Hospital Medicine has been consulted for co- management of chronic medical conditions. 1. Obstructive sleep apnea. I will order the patient's CPAP and she has brought her CPAP from home. 2. Hypertension. Recommend continuing her hydrochlorothiazide. I will add holding parameters to hold for systolic blood pressure less than 110 to avoid orthostatic hypotension while she is in the hospital, but she can return to this normally while she is home. 3. Hyperlipidemia. Recommend continuing her home simvastatin. 4. Anemia. Recommend continuing the patient's cyanocobalamin. 5. Status post total knee replacement. Management per Orthopedic Surgery. 6. Disposition: Per Orthopedic Surgery. Thank you for allowing us to participate in the care of this patient. HÉCTOR MOORE [id number]/[facility] #: [id number] MTDD
[2019-01-23] MEDS: Lactated Ringers 1000 ML Bag* 1,000 ML IV SCH (14:03)
[2019-01-23] MEDS: oxyCODONE/Acetamin 5/325 MG* TAB PO PRN (14:52)
[2019-01-23] MEDS: Acetaminophen TAB* 325 MG PO SCH ×2 (15:02→22:15)
--- NOTE | 2019-01-23 15:41 | PN ---
Progress Note - Progress Note Date of Service: 01/23/19 Note: Pt seen at bedside. She feels well without CP, SOB, dizziness, nausea. Knee pain is well controlled. DF/PF intact, DP2+, sensation intact to light touch distally, calves supple and nontender.
[2019-01-23] MEDS: ceFAZolin 1 GM ADVAN(*) 1 GM in NS 0.9% 50 ML* 50 ML IVPB SCH (16:41)
[2019-01-23] MEDS ORDERED: Atorvastatin* 10 MG TAB PO SCH (17:00)
--- NOTE | 2019-01-23 20:43 | OP ---
Operative Report - Blank - Operative Report Date of Operation: 01/23/19 Note: TC SCHWARTZ 1950 Date of Surgery: 01/23/19 Mylene Mari MD Table Hand: Aminata ANAYA did help throughout the procedure with preparation of the knee, wound retraction, manipulation of the knee, and wound closure. Anesthesiologist: Marshall Lamas MD Anesthesia Type: Spinal Preoperative Diagnosis: Left severe degenerative osteoarthritis of the knee Postoperative Diagnosis: As above Procedure Performed: Left Total Knee Arthroplasty Tourniquet time: 51 minutes Complications: None Specimen: Bone and cartilage from the left knee joint sent to pathology. Hardware Used: Cemented De Leon and Nephew total knee hardware was used - For the femur a size 5 left narrow oxinium legion posterior stabilized femoral component , for the tibia a size 3 left devi II tibial baseplate, for the insert a size 9mm 3-4 posterior stabilized articular polyethylene insert, and for the patella a size 32 3-peg all poly patella. Brief History/Indication: TC SCHWARTZ was known in clinic and had a history of severe left knee pain and swelling. She failed conservative treatment with anti-inflammatories, pain pills, intra-articular injections and physical therapy. She elected to undergo left total knee arthroplasty due to continued pain and decreased quality of life. Radiographs showed severe end stage osteoarthritis of the knee with bone on bone contact. Informed consent was obtained from the patient. She understood the risks of surgery included but were not limited to: bleeding, infection, damage to nearby structures, intraoperative fracture, nerve palsy, failure of the hardware, early loosening, knee stiffness or loss of motion, anesthesia complications, stroke, heart attack , blood clot and . She wished to proceed. Intra-Operative Findings: Intraoperatively the patient was noted to have severe loss of cartilage in all 3 compartments of the knee. Description of the Procedure: TC SCHWARTZ was identified in the preanesthesia unit. Her left knee was marked as the correct operative side. Informed consent was signed and placed in the chart. The patient was taken to the operating room and placed under anesthesia without complication. A manjarrez catheter was placed. A tourniquet was placed on the left thigh. The left lower extremity was prepped and draped in the usual sterile fashion. Preoperative time-out was made to correctly identify the patient, side and site. Appropriate intraoperative antibiotics were given within one hour of incision. Tourniquet was inflated. A midline incision was made and carried sharply down to the extensor mechanism. A new 10 blade was used to make a standard medial parapatellar arthrotomy. The patella was subluxed laterally. Electrocautery was used to dissect soft tissue off the superomedial tibia to the midsagittal plane. The knee was flexed up. The anterior horn of the lateral meniscus and the ACL were sharply incised. A drill was used to enter the distal femur. The intramedullary distal femoral cutting guide was pinned on the distal femur. The oscillating saw was used to make the distal femoral cut. The external rotation guide was pinned on the distal femur and the distal femur was sized to a size 5. The size 5 multi-cutting jig was pinned on the distal femur. The oscillating saw was used to make the appropriate 4 chamfer cuts. Next the PCL was completely released. The extramedullary tibial cutting guide was pinned on the proximal tibia and the oscillating saw was used to make the proximal tibial cut perpendicular to the mechanical axis of the tibia. The bone was carefully removed. The knee was brought out into full extension. The spacer block was placed and had excellent fit with the knee in full extension. The medial and lateral ligaments were well balanced. The flexion and extension gaps were well balanced. The knee was flexed up. Lamina water supervisor was placed both medially and laterally. Any remaining meniscus was removed with electrocautery. Curved osteotome was used to remove any posterior osteophytes. The tibial tray and drop laura were placed and confirmed a satisfactory tibial cut. The size 5 left narrow femoral trial was impacted onto the distal femur. This trial had excellent fit and stability. The box for the posterior stabilized implant was prepared using a box cut osteotome and a reamer. Next a tibial tray trial and 9 mm insert trial was placed. The knee was taken through a range of motion and had full extension to 130 degrees of flexion. Patellofemoral tracking was satisfactory. The patella was inverted and sized to a size 32. Three peg holes were drilled through the size 32 drill guide. The trial patella was placed and the knee was taken through a range of motion. There was satisfactory patellofemoral tracking. All trials were removed. The tibia was subluxed anteriorly and sized to a size 3. The proximal tibial was prepared with a size 3 keel punch. All bony cut surfaces were irrigated with sterile saline and dried. Final implants were cemented into place starting with the tibia, followed by the femur, and last the patella. A 9 mm insert trial was placed and the knee was brought into full extension. Tourniquet was turned down and the knee was copiously irrigated with sterile saline. Electrocautery was used to obtain meticulous hemostasis. Once the cement had fully cured, the insert trial was removed. Any excess cement was removed from around the hardware and capsule. Final insert chosen was a 9 mm posterior stabilized Devi II articular insert size 3-4. Stability of the insert was checked and noted to be stable. The extensor mechanism was closed using number 1 vicryls. The rest of the incision was closed in a layered fashion using 0 and 2-0 vicryls. The skin was closed using 3-0 nylon suture. Sterile xeroform, 4x4s and webril were used to cover the incision. Beto wrap and cold pack were used to cover the dressings. The patients anesthesia was reversed without difficulty. She was taken to the PACU in stable condition. Intended weight-bearing will be as tolerated.
[2019-01-23] MEDS: Docusate CAP* 100 MG PO SCH (21:30)
[2019-01-23] MEDS: Magnesium Hydroxide LIQ* 30 ML UDC PO SCH (21:32)
[2019-01-24] MEDS: ceFAZolin 1 GM ADVAN(*) 1 GM in NS 0.9% 50 ML* 50 ML IVPB SCH ×2 (00:02→08:03)
[2019-01-24] MEDS: oxyCODONE/Acetamin 5/325 MG* TAB PO PRN ×2 (04:15→08:06)
[2019-01-24] MEDS: Lactated Ringers 1000 ML Bag* 1,000 ML IV SCH (04:16)
[2019-01-24] MEDS: Acetaminophen TAB* 325 MG PO SCH ×2 (06:43→13:46)
[2019-01-24 06:48] LABS: Hematocrit 37 % (35-47); Hemoglobin 12.7 g/dL (12.0-16.0); Platelet Count 209 10^3/uL (150-450)
[2019-01-24 07:03] LABS: BUN/Creatinine Ratio 26.4 (8-20); Calcium 9.2 mg/dL (8.6-10.3); EGFR African American 97.8 (>60); EGFR Non-African American 80.8 (>60); Potassium 3.2 mmol/L (3.5-5.0)
[2019-01-24] MEDS ORDERED: Potassium Chlor TAB* 20 MEQ TAB.ER PO ONE (07:28)
[2019-01-24] MEDS: Docusate CAP* 100 MG PO SCH (08:07)
[2019-01-24] MEDS: Magnesium Hydroxide LIQ* 30 ML UDC PO SCH (08:07)
--- NOTE | 2019-01-24 08:12 | PN ---
Progress Note - Progress Note Date of Service: 01/24/19 SOAP: Subjective: Pt. is alert, nad, moderate pain. Objective: Vital Signs: Temp Pulse Resp BP Pulse Ox 97.8 F 100 18 136/61 96 01/24/19 07:46 01/24/19 07:46 01/24/19 08:06 01/24/19 07:46 01/24/19 07:46 Laboratory Results - last 24 hr 01/24/19 01/24/19 06:13 06:18 Hgb 12.7 Hct 37 Plt Count 209 MPV 9.0 Sodium 135 Potassium 3.2 L Chloride 99 L Carbon Dioxide 28 Anion Gap 8 BUN 19 Creatinine 0.72 Est GFR ( Amer) 97.8 Est GFR (Non-Af Amer) 80.8 BUN/Creatinine Ratio 26.4 H Glucose 144 H Calcium 9.2 LLE - dressing c/d/i. distally + df/pf, full sens lt, 2+ dp pulse. Assessment: 68 yo POD 1 s/p LTKA Plan: wbat lle pt/ot eliquis bid will replace potassium - mild hypokalemia this AM plan d/c to home with vns today.
[2019-01-24] MEDS ORDERED: Cyanocobalamin TAB* 500 MCG PO SCH (09:00)
[2019-01-24] MEDS ORDERED: Apixaban* 2.5 MG TAB PO SCH (09:00)
[2019-01-24] MEDS ORDERED: NON FORMULARY MED* (Hydrochlorothiazide [Hydrochlorothiazide] 12.5 MG) PO SCH (09:00)
[2019-01-24] MEDS ORDERED: Calcium/Vitamin D TAB 250/125* TAB PO SCH (09:00)
[2019-01-24] MEDS ORDERED: Vitamin THERAPEUTIC TAB PO SCH (09:00)
[2019-01-24] MEDS ORDERED: Hydrochlorothiazide TAB* 25 MG PO SCH (09:00)
[2019-01-24] MEDS ORDERED: Cholecalciferol TAB* 1000 UNITS PO SCH (09:00)
[2019-01-24] MEDS: KCL 20 MEQ/100 ML IVPREMIX* 20 MEQ/100 ML BAG IV SCH ×2 (09:23→12:24)
[2019-01-24] MEDS: Potassium Chlor TAB* 20 MEQ TAB.ER PO SCH ×3 (09:23→13:45)
[2019-01-24 11:29] LABS: CO2 Carbon Dioxide 22 mmol/L (22-32); Chloride 99 mmol/L (101-111); Sodium 133 mmol/L (135-145)
[2019-01-24 11:32] LABS: Anion Gap 12 mmol/L (2-11)
[2019-01-24 11:35] LABS: BUN/Creatinine Ratio 24.3 (8-20); Blood Urea Nitrogen 18 mg/dL (6-24); EGFR African American 94.7 (>60); EGFR Non-African American 78.3 (>60); Glucose 122 mg/dL (70-100)
[2019-01-24 12:23] VITALS: BP 137/78
--- NOTE | 2019-01-24 12:29 | DS ---
DISCHARGE SUMMARY: DATE OF ADMISSION: 01/23/19 DATE OF DISCHARGE: 01/24/19 SURGEON: Mylene Mari MD * (DICTATED BY HÉCTOR DOMÍNGUEZ) PRINCIPAL DIAGNOSIS: End-stage osteoarthritis of the left knee. DISCHARGE DIAGNOSIS: End-stage osteoarthritis of the left knee. DISCHARGE DISPOSITION: Discharged home in stable condition. HISTORY OF PRESENT ILLNESS: Ms. Villalobos is a 68-year-old female with end-stage osteoarthritis of the left knee. She failed conservative treatment and elected to proceed with a left total knee arthroplasty. HOSPITAL COURSE: Ms. Villalobos was admitted electively to the hospital on and underwent a left total knee arthroplasty. She tolerated the procedure well. Postoperatively, she was placed on Eliquis for DVT prophylaxis. On postoperative day 1, her H and H was 12 and 37. Her potassium was slightly low at 3.2 and she was given 20 mEq of potassium chloride. At the time of discharge , she was afebrile and her vital signs were stable and her wound was clean and dry. She was ambulating well with physical therapy. DISCHARGE MEDICATIONS: 1. Percocet 5/325 one to two tabs every 4 to 6 hours as needed for pain. 2. Colace 100 mg tabs 2 to 3 daily as needed for constipation. 3. Eliquis 2.5 mg every 12 hours for 30 days. 4. Flexeril 10 mg 1 tab every 8 hours as needed for muscle spasms. 5. Calcium with vitamin D. 6. Vitamin B12. 7. Hydrochlorothiazide 12.5 mg daily. PHYSICAL EXAMINATION UPON DISCHARGE: She was afebrile. Her vital signs were stable. Her wound was clean and dry. She was able to dorsiflex and plantar flex. She had a 2+ dorsalis pedis pulse and intact sensation. She was ambulating well with a walker. DISCHARGE INSTRUCTIONS: She was discharged home in stable condition. She was given Percocet for pain, Colace for constipation. She was asked to take Eliquis twice a day for 30 days for DVT prophylaxis. Her potassium was slightly low. On postoperative day 1, she was given potassium chloride while in the hospital and asked to follow up with her primary care physician next week. Prior to that appointment, she will have a basic metabolic profile completed at a lab of her choice. She will begin outpatient physical therapy as soon as possible and she will follow up with Dr. Mari in 2 weeks. HÉCTOR DOMÍNGUEZ [id number]/[facility] #: [id number] [facility]
[2019-01-25] MEDS ORDERED: Calcium/Vitamin D TAB 250/125* TAB PO SCH (09:00)
[2019-01-26] MEDS ORDERED: Scopolamine PATCH Remove* 1 NOTE MISC PATCH OFF ONE (09:02)
== END 2019-01-24 14:58 | disposition home or self-care (01) ==
LOC: OR 06:09 → EDSTATUS 07:45 → INTOOBSV 10:53 → SSU 10:53
PROVIDERS: ADMIT Orthopaedic Surgery Adult Reconstructive Orthopaedic Surgery; ATTEND Orthopaedic Surgery Adult Reconstructive Orthopaedic Surgery
DX: M17.12 Unilateral primary osteoarthritis, left knee (principal); M25.562 Pain in left knee; G47.33 Obstructive sleep apnea (adult) (pediatric); E78.00 Pure hypercholesterolemia, unspecified; E78.5 Hyperlipidemia, unspecified; I10 Essential (primary) hypertension; D51.9 Vitamin B12 deficiency anemia, unspecified; Z85.42 Personal history of malignant neoplasm of other parts of uterus; Z90.710 Acquired absence of both cervix and uterus; Z79.899 Other long term (current) drug therapy; Z79.01 Long term (current) use of anticoagulants
CPT/HCPCS: 36415; 80048; 85014; 85018; 85049; 88305; 88311; 94660; 96375; A9270-GY; C1776; G0378; G8978-GP-CJ; G8979-GP-CI; J0330; J0690; J1100; J2250; J2270; J2405; J2704; J2795; J3010; J3480; J8540